=== PATIENT | male | born 1940 | race Caucasian/White ===

== ENCOUNTER 2020-08-11 17:39 | Inpatient (IN) | payer MEDICARE, OTHER ==
[~2020-08-11] VITALS: Ht 178 cm; Wt 86.4 kg
[2020-08-11] MEDS ORDERED: ONDANSETRON 4 MG (ZOFRAN) ORAL DISSOLVE TAB PO PRN (18:15)
[2020-08-11] MEDS ORDERED: ANTACID SUSP 30 ML UDC (MYLANTA) PO PRN (18:15)
[2020-08-11] MEDS ORDERED: MELATONIN 3 MG TABLET PO PRN (18:15)
[2020-08-11] MEDS ORDERED: polyethylene glycoL POWDER 17 GM (MIRALAX) PACK PO PRN (18:15)
[2020-08-11] MEDS ORDERED: CLOPIDOGREL 300 MG (PLAVIX) TABLET PO ONE ×2 (18:15→21:19)
[2020-08-11] MEDS ORDERED: ONDANSETRON 4 MG/2 ML (SDV) Z0FRAN IV PRN (18:15)
[2020-08-11] MEDS ORDERED: ACETAMINOPHEN 325 MG TABLET PO PRN (18:15)
[2020-08-11] MEDS ORDERED: BISACODYL 10 MG SUPP (DULCOLAX) PR PRN (18:15)
[2020-08-11] MEDS ORDERED: ENOXAPARIN 100 MG/1 ML (LOVENOX) SYR SC ONE (22:00)
[2020-08-11] MEDS: inSUlin ASPART (NovoLOG) 1 UNIT/0.01 ML (CHARGE PER UNIT) SC SCH (22:30)
[2020-08-12 03:10] LABS: BASOPHILS % (AUTO) 0 % (0-10); EOSINOPHILS % (AUTO) 0 % (0-10); HEMATOCRIT 25 % (40-54); HEMOGLOBIN 7.8 g/dL (13.3-17.7); LYMPHOCYTES % (AUTO) 14 % (12-44); MEAN CORPUSCULAR HEMOGLOBIN 27 pg (25-34); MEAN CORPUSCULAR HGB CONC 32 g/dL (32-36); MEAN CORPUSCULAR VOLUME 85 fL (80-99); MEAN PLATELET VOLUME 9.7 fL (9.0-12.2); MONOCYTES # (AUTO) 0.7 10^3/uL (0.0-1.0); MONOCYTES % (AUTO) 10 % (0-12); NEUTROPHILS # (AUTO) 5.4 10^3/uL (1.8-7.8); NEUTROPHILS % (AUTO) 76 % (42-75); PLATELET COUNT 226 10^3/uL (130-400); WHITE BLOOD COUNT 7.1 10^3/uL (4.3-11.0)
[2020-08-12 03:22] LABS: POTASSIUM 3.9 MMOL/L (3.6-5.0)
[2020-08-12 03:23] LABS: CALCIUM 8.5 MG/DL (8.5-10.1)
[2020-08-12 03:28] LABS: CREATININE SERUM 1.44 MG/DL (0.60-1.30)
[2020-08-12] MEDS: inSUlin ASPART (NovoLOG) 1 UNIT/0.01 ML (CHARGE PER UNIT) SC SCH ×4 (05:20→20:28)
[2020-08-12] MEDS: CLOPIDOGREL 75 MG (PLAVIX) TABLET PO SCH (09:48)
[2020-08-12] MEDS: ENOXAPARIN 100 MG/1 ML (LOVENOX) SYR SC SCH ×2 (09:48→20:12)
[2020-08-12] MEDS: ASPIRIN 81 MG CHEW (CHILDREN'S ASA) PO SCH (09:48)
--- NOTE | 2020-08-12 12:44 | Physical Therapy Evaluation ---
PT Evaluation-General Medical Diagnosis Admission Date August 11, 2020 at 20:26 Medical Diagnosis: pain in right leg Onset Date: August 12, 2020 Therapy Diagnosis Therapy Diagnosis: difficulty walking Precautions Precautions/Isolations: Fall Prevention, Standard Precautions Weight Bear Status Weight Bearing/Tolerated Weight Bearing/Tolerated Referral Physician: pankaj Reason for Referral: Evaluation/Treatment Social History Home: Single Level Current Living Status: Spouse Prior Prior Level of Function SCALE: Activities may be completed with or without assistive devices. 1-Rooooqpcet-cxvqhdq completes the activity by him/herself with no assistance from a helper. 5-Set-up or Clean-up Assistance-helper sets up or cleans up; patient completes activity. [place] assists only prior to or following the activity. 4-Supervision or Touching Assistance-helper provides verbal cues and/or touching/steadying and/or contact guard assistance as patient completes activity. Assistance may be provided throughout the activity or intermittently. 3-Partial/Moderate Assistance-helper does LESS THAN HALF the effort. [place] lifts, holds or supports trunk or limbs, but provides less than half the effort. 2-Substantial/Maximal Assistance-helper does MORE THAN HALF the effort. [place] lifts or holds trunk or limbs and provides more than half the effort. 6-Lhakhivcs-muudmy does ALL the effort. Patient does none of the effort to complete the activity. Or, the assistance of 2 or more helpers is required for the patient to complete the activity. If activity was not attempted, code reason: 7-Patient Refused. 9-Not Applicable-not attempted and the patient did not perform the activity before the current illness, exacerbation or injury. 10-Not Attempted due to Environmental Limitations-(lack of equipment, weather restraints, etc.). 88-Not Attempted due to Medical Conditions or Safety Concerns. Bed Mobility: 6 Transfers (B,C,W/C): 6 Gait: 6 Stairs: 6 Indoor Mobility (Ambulation): Independent Prior Devices Use: Walker PT Evaluation-Current Subjective The patient states that his right leg has been hurting her for a month. Nursing states that he has had a dopler that was negative. Awaiting further evaluation. Pain Numeric Pain Scale: 10-Worst Possible Pain Location: Right Location Body Site: Calf ROM/Strength ROM Lower Extremities WFL Strength Lower Extremities 4/5 Transfers Roll Left to Right (QC): 4 Sit to Lying (QC): 4 Lying to Sitting/Side of Bed(Q: 4 Sit to Stand (QC): 4 Gait Does the Patient Walk?: Yes Mode of Locomotion: Walk Anticipated Mode of Locomotion: Walk Walk 10 feet (QC): 5 Balance Sitting Static: Normal Sitting Dynamic: Good Standing Static: Fair Standing Dynamic: Fair Assessment/Needs 79 y.o. male with severe right leg pain who is awaiting further testing. He has limitations with gait secondary to severe pain. Rehab Potential: Good PT Short Term Goals Short Term Goals Time Frame: August 19, 2020 Roll Left & Right: 5 Sit to lyin Lying to sitting on side of be: 5 Sit to stand: 5 Chair/erf-ce-zieun transfer: 5 Toilet transfer: 5 Car transfer: 5 Walk 10 feet: 5 Walk 50 feet with two turns: 5 PT Weight And Balance Control Agent Goals Weight And Balance Control Agent Goals PT Weight And Balance Control Agent Goals Time Frame: August 26, 2020 Roll Left & Right (QC): 6 Sit to Lying (QC): 6 Lying-Sitting on Side/Bed(QC): 6 Sit to Stand (QC): 6 Chair/Tse-qa-Xgzsq Xfer(QC): 6 Toilet Transfer (QC): 6 Car Transfer (QC): 6 Does the Patient Walk: Yes Walk 10 feet (QC): 6 Walk 50ft with 2 Turns (QC): 6 Walk 150 ft (QC): 6 PT Plan Problem List Problem List: Activity Tolerance, Functional Strength, Safety, Balance, Gait, Transfer, Bed Mobility, ROM Treatment/Plan Treatment Plan: Continue Plan of Care Treatment Plan: Bed Mobility, Functional Activity Nichelle, Functional Strength, Gait, Therapeutic Exercise, Transfers Treatment Duration: August 26, 2020 Frequency: 11 times per week Estimated Hrs Per Day: .5 hour per day Time/GCodes Time In: 1215 Time Out: 1230 Total Billed Treatment Time: 15 Total Billed Treatment 1, EV Low complexity x 15' BRITTA BOOTH PT August 12, 2020 12:44
[2020-08-12] MEDS: D5 LR IV SOLUTION 1,000 ML IV SCH (13:31)
--- NOTE | 2020-08-12 14:22 | Diagnostic Imaging Report ---
PROCEDURE: CT neck soft tissue without contrast. TECHNIQUE: Multiple contiguous axial images were obtained through the neck without the use of intravenous contrast. Auto Exposure Controls were utilized during the CT exam to meet ALARA standards for radiation dose reduction. INDICATION: Lymphadenopathy Noncontrasted soft tissue neck CT is performed. Sensitivity for detecting adenopathy or masses is severely limited by the absence of contrast as well as confounded by likely subcutaneous edema and a paucity of fat. The prevertebral and retropharyngeal spaces were grossly unremarkable. There are dense vascular calcifications of the carotids, greater left. No acute or suspicious bony abnormality is found. The visualized paranasal sinuses nonacute. No mass, fluid collection or appreciable lymphadenopathy. There are biapical pleural effusions as well as some apical septal thickening, likely mild edema. There are degenerative changes throughout the spine. IMPRESSION: 1. No identifiable mass or fluid collection however substantially limited sensitivity for factors discussed. No appreciable mass or fluid collection. 2. There is biapical pleural fluid and likely some biapical interstitial edema and diffuse subcutaneous edema with a cachectic type body habitus and minimal fat. Dictated by: Dictated on workstation # [id number]
--- NOTE | 2020-08-12 15:15 | Diagnostic Imaging Report ---
PROCEDURE: CT right lower extremity without contrast. TECHNIQUE: Axially acquired CT was obtained through the right lower extremity without intravenous contrast. Coronal and sagittal reformations were also performed. Auto Exposure Controls were utilized during the CT exam to meet ALARA standards for radiation dose reduction. INDICATION: Right leg swelling from the groin to the knee. FINDINGS: The femur appears intact. No fracture or bony destructive changes are identified. There is edema throughout the subcutaneous soft tissues of the right lower extremity. No soft tissue gas is identified. There is abnormal appearance to the vastus intermedius musculature of the deep thigh. There are patchy areas of low attenuation throughout the musculature. Small fluid collections cannot be entirely excluded within the muscle. Deep tissue infection is suspected. No other fluid collection is identified. IMPRESSION: Significant subjacent edema throughout the right lower extremity consistent with cellulitis. Vastus intermedius musculature of the thigh is abnormal in appearance and demonstrates heterogeneous density with areas of fluid density distally and the possibility of a multifocal fluid collections or abscesses within the muscle cannot be entirely excluded. No soft tissue gas is identified to suggest necrotizing fasciitis. No bony destructive changes or evidence of osteomyelitis is identified. MRI would be useful for better characterization. Dictated by: Dictated on workstation # [id number]
--- NOTE | 2020-08-12 15:38 | Consultation-Cardiology ---
HPI-Cardiology Cardiology Consultation: Date of Consultation 08/12/20 Date of Admission Attending Physician Pushpa Bass MD Admitting Physician Stan Mohan MD Consulting Physician Hay CARRENO MD HPI: Time Seen by a Provider: 14:30 Chief Complaint: right leg pain This is a elderly male with CAD/CABG, Diabetes, CKD, anemia who presented to an outside ER with right leg pain and swelling. Follows with Sandhya Baez but was transferred to [place] because Sandhya Baez in on diversion. Borderline troponin. Anemia. Denies any chest pain or shortness of breath. Review of Systems-Cardiology Review of Systems Constitutional: As described under HPI; No As described under HPI, No no symptoms reported, No chills, No fever, No lightheadedness Eyes: No As described under HPI, No no symptoms reported, No blindness, No blurred vision, No contact lenses, No drainage, No decreased acuity, No foreign body sensation, No pain, No vision change Ears/Nose/Throat: No As described under HPI, No no symptoms reported, No chronic hearing loss, No ear discharge, No ear pain, No nasal drainage, No ulcerations Respiratory: No no symptoms reported; As described under HPI; No As described under HPI, No cough, No orthopnea, No shortness of breath, No SOB with excertion Cardiovascular: No no symptoms reported; As described under HPI; No As described under HPI, No chest pain, No edema, No irregular heart rate, No lightheadedness, No palpitations Gastrointestinal: No no symptoms reported, No As described under HPI, No abdomen distended, No abdominal pain, No blood streaked bowels, No constipation, No diarrhea, No nausea, No vomiting, No stool coloration changes Genitourinary: No As described under HPI, No burning, No dysuria, No discharge, No frequency, No flank pain, No hematuria, No urgency Musculoskeletal: As describe under HPI Skin: No rash, No skin related problems, No ulcerations Psychiatric/Neurological: No anxiety, No depression, No seizure, No focal weakness, No syncope Hematologic: No bleeding abnormalities FJR-[id number]-Qduplp Hx Patient Social History Have you traveled recently?: No Alcohol Use?: Yes Pt feels they are or have been: No Past Medical History PMH As described under Assessment. Allergies and Home Medications Allergies Coded Allergies: rosuvastatin (Verified Allergy, Unknown, 08/12/20) Patient Home Medication List Home Medication List Reviewed: Yes Physical Exam-Cardiology Physical Exam Vital Signs/I&O 08/13/20 08/13/20 08/13/20 08/13/20 10:20 12:00 12:35 16:00 Temp 36.7 Pulse 111 109 94 Resp 16 B/P (MAP) 106/60 (75) 111/60 (77) Pulse Ox 96 93 97 O2 Delivery Nasal Cannula Nasal Cannula Nasal Cannula O2 Flow Rate 3.00 3.00 3.00 08/13/20 08/13/20 08/13/20 19:00 20:21 20:38 Temp 37.2 Pulse 79 92 Resp 20 B/P (MAP) 105/56 (72) Pulse Ox 94 97 O2 Delivery Nasal Cannula Nasal Cannula O2 Flow Rate 3.00 3.00 08/13/20 00:00 Intake Total 660 ml Output Total 925 ml Balance -265 ml Capillary Refill : Less Than 3 Seconds Constitutional: appears stated age, AAO x 3; No apparent distress HEENT: PERRL; No discharge; hearing is well preserved, oral hygience is good; No ulceration, No xanthelasmas are seen Neck: No carotid bruit; carotid pulses are 2 + bilaterally Respiratory: chest is bilaterally symmetric, lungs clear to auscultation Cardiovascular: regular rate-rhythm, tachycardia, S1 and S2 Gastrointestinal: soft, audible bowel sounds; No spleenomegaly Rectal: deferred Extremities: No clubbing, No cyanosis; significant edema Neurologic/Psychiatric: no motor/sensory deficits, alert, normal mood/affect, oriented x 3, power is 5/5 both on sides Skin: No rash, No ulcerations Data Review Labs Laboratory Tests 08/13/20 02:30: White Blood Count 6.0, Red Blood Count 3.25L, Hemoglobin 8.7L, Hematocrit 28L, Mean Corpuscular Volume 86, Mean Corpuscular Hemoglobin 27, Mean Corpuscular Hemoglobin Concent 31L, Red Cell Distribution Width 16.0H, Platelet Count 249, Mean Platelet Volume 9.4, Immature Granulocyte % (Auto) 0, Neutrophils (%) (Auto) 79H, Lymphocytes (%) (Auto) 13, Monocytes (%) (Auto) 8, Eosinophils (%) (Auto) 0, Basophils (%) (Auto) 0, Neutrophils # (Auto) 4.7, Lymphocytes # (Auto) 0.8L, Monocytes # (Auto) 0.5, Eosinophils # (Auto) 0.0, Basophils # (Auto) 0.0, Immature Granulocyte # (Auto) 0.0, Sodium Level 142, Potassium Level 4.1, Chloride Level 106, Carbon Dioxide Level 27, Anion Gap 9, Blood Urea Nitrogen 57H, Creatinine 1.24, Estimat Glomerular Filtration Rate 56, BUN/Creatinine Ratio 46, Glucose Level 104, Calcium Level 8.6, Total Bilirubin 0.5, Direct Bilirubin 0.2, Indirect Bilirubin 0.3, Aspartate Amino Transf (AST/SGOT) 59H, Alanine Aminotransferase (ALT/SGPT) 50, Alkaline Phosphatase 56, Total Protein 5.1L, Albumin 2.0L 08/13/20 20:22: Glucometer 137H ECG Impression ECG Initial ECG Rhythm: S.Tach Initial ECG Impression: Nonspecific Changes A/P-Cardiology Assessment/Admission Diagnosis Right leg pain and swelling, CAD, CABG, Anemia, CKD Plan Right leg pain and swelling, - right lower extremity doppler shows no DVT. Ddimer mildly elevated. Swelling noted, however, not pale, pulses ok. No evidence of acute ischemic limb. CAD, CABG, no chest pain. Borderline positive troponin, trending down. No acute EKG changes. severe anemia - cath contraindicated till bleeding ruled out. Nuclear stress test may be a better modality to assess for any significant anemia. Anemia, unclear etiology. apparently patient is not aware of anemia. likely new diagnosis. defer to general surgery and primary team for evaluation. CKD Thank you for your consultation. Please call me if you have any questions. Leo Carreno MD, FACP, FACC, FSCAI, FHRS, CCDS Interventional Cardiology Cardiac Electrophysiology Vascular Medicine and Endovascular Interventions Hay CARRENO MD August 12, 2020 15:38
--- NOTE | 2020-08-12 18:33 | History & Physical-Hospitalist ---
History of Present Illness HPI/Chief Complaint Atilio Romo is an 79 year old male with PMH CAD s/p CABG, HTN, HLD, T2DM, hypothyroidism, CKD, who presented to [facility] with right leg swelling. His workup revealed an elevated troponin and he was transferred for NSTEMI. He denies any chest pain. He reports shortness of breath. He has been feeling weak. He says that the swelling with his leg has been slowly progressing. He had an ultrasound in the ER that showed no blood clot. He is not sure if they took veins from his leg when he had his bypass last September. Source: patient Exam Limitations: no limitations Date Seen 08/12/20 Time Seen by a Provider: 09:40 Attending Physician Anders Pierce MD PCP Stan Mohan MD Referring Physician Date of Admission August 11, 2020 at 20:26 Home Medications & Allergies Home Medications Reviewed patient Home Medication Reconciliation performed by pharmacy medication reconciliations pilot plant research technician and/or nursing. Patients Allergies have been reviewed. Allergies Allergies Coded Allergies rosuvastatin (Verified Allergy, Unknown, 08/12/20) Patient Social History Tobacco Use?: Yes Smokeless type used: Chew Smokeless Tobacco Frequency: Current Everyday User Use of E-Cig and/or Vaping dev: No Substance use?: No Alcohol Use?: Yes Alcohol type: Beer Alcohol Frequency: Once in a while Pt stated abuse/neglect: No Current Status Do you have an Advance Directi: Yes Advance Directive Location: CT Communicates: Verbally Primary Language: Syrian Preferred Spoken Language: Syrian Is interpretation needed?: No Past Medical History HTN T2DM HLD CAD Hypothyroid CKD Family Medical History Family Hx: Noncontributory Review of Systems Constitutional: no symptoms reported EENTM: no symptoms reported Respiratory: short of breath Cardiovascular: no symptoms reported Gastrointestinal: no symptoms reported Genitourinary: no symptoms reported Musculoskeletal: no symptoms reported Skin: no symptoms reported Psychiatric/Neurological: No Symptoms Reported Physical Exam Physical Exam Vital Signs Vital Signs - First Documented 08/11/20 08/11/20 20:31 23:12 Temp 36.6 Pulse 79 Resp 18 B/P (MAP) 118/77 (91) Pulse Ox 95 O2 Delivery Room Air O2 Flow Rate 2.00 Capillary Refill : Less Than 3 Seconds Height, Weight, BMI Height: '" Weight: lbs. oz. kg; 27.36 BMI Method: General Appearance: No Apparent Distress, Chronically ill HEENT: PERRL/EOMI, Pharynx Normal Neck: Supple, Lymphadenopathy (L), Lymphadenopathy (R) Respiratory: Lungs Clear, Normal Breath Sounds, No Respiratory Distress Cardiovascular: Regular Rate, Rhythm, No Murmur Gastrointestinal: Normal Bowel Sounds, Non Tender, Soft Extremity: No Inflammation; Swelling (right > left) Skin: Normal Color, Warm/Dry Results Results/Procedures Labs Laboratory Tests 08/12/20 02:59 Patient resulted labs reviewed. Imaging: Reviewed Imaging Report Assessment/Plan Admission Diagnosis NSTEMI Admission Status: Inpatient Order (span 2 midnights) Reason for Inpatient Admission: NSTEMI requiring further evaluation Assessment and Plan NSTEMI CAD s/p CABG Troponin elevated Cardiology consulted, appreciate assistance Started on ASA and Plavix Therapeutic Lovenox Echo with normal EF, grade 2 diastolic dysfunction, basal inferoseptal akinesis Right leg swelling Ultrasound negative for DVT at [facility] CT with vastus intermedius abscess vs multifocal fluid collection Consult general surgery, appreciate assistance Submandibular lymphadenopathy Unclear significance CT Neck unremarkable T2DM with hypoglycemia Hold home meds D5LR Sliding scale insulin CKD Cr 1.44, unclear baseline IV fluids Continue to monitor HTN HLD Hypothyroid Continue home meds Diagnosis/Problems Diagnosis/Problems (1) NSTEMI (non-ST elevation myocardial infarction) Status: Acute (2) CAD (coronary artery disease) Status: Chronic (3) S/P CABG (coronary artery bypass graft) Status: Chronic (4) Right leg swelling Status: Acute (5) Submandibular lymphadenopathy Status: Acute (6) HTN (hypertension) Status: Chronic (7) HLD (hyperlipidemia) Status: Chronic (8) T2DM (type 2 diabetes mellitus) Status: Acute Qualifiers: Diabetes mellitus fpc insulin use: without fpc use Diabetes m ellitus complication status: with hypoglycemia Diabetes mellitus complication detail: without coma Qualified Codes: E11.649 - Type 2 diabetes mellitus with hypoglycemia without coma (9) Hypothyroidism Status: Chronic (10) CKD (chronic kidney disease) Status: Chronic Qualifiers: Chronic kidney disease stage: stage 3 (moderate) Chronic kidney disease stage 3 subtype: stage 3a (GFR 45-59) Qualified Codes: N18.31 - Chronic kidney disease, stage 3a ANDERS PIERCE MD August 12, 2020 18:33
[2020-08-13] MEDS: D5 LR IV SOLUTION 1,000 ML IV SCH (01:52)
[2020-08-13 02:51] LABS: BASOPHILS % (AUTO) 0 % (0-10); EOSINOPHILS % (AUTO) 0 % (0-10); HEMATOCRIT 28 % (40-54); HEMOGLOBIN 8.7 g/dL (13.3-17.7); LYMPHOCYTES # (AUTO) 0.8 10^3/uL (1.0-4.0); LYMPHOCYTES % (AUTO) 13 % (12-44); MEAN CORPUSCULAR HEMOGLOBIN 27 pg (25-34); MEAN CORPUSCULAR HGB CONC 31 g/dL (32-36); MEAN CORPUSCULAR VOLUME 86 fL (80-99); MEAN PLATELET VOLUME 9.4 fL (9.0-12.2); MONOCYTES # (AUTO) 0.5 10^3/uL (0.0-1.0); MONOCYTES % (AUTO) 8 % (0-12); NEUTROPHILS # (AUTO) 4.7 10^3/uL (1.8-7.8); NEUTROPHILS % (AUTO) 79 % (42-75); PLATELET COUNT 249 10^3/uL (130-400)
[2020-08-13 03:05] LABS: POTASSIUM 4.1 MMOL/L (3.6-5.0)
[2020-08-13 03:06] LABS: CALCIUM 8.6 MG/DL (8.5-10.1)
[2020-08-13 03:10] LABS: CREATININE SERUM 1.24 MG/DL (0.60-1.30)
[2020-08-13] MEDS: inSUlin ASPART (NovoLOG) 1 UNIT/0.01 ML (CHARGE PER UNIT) SC SCH (04:09)
[2020-08-13] MEDS: ASPIRIN 81 MG CHEW (CHILDREN'S ASA) PO SCH (08:51)
[2020-08-13] MEDS: CLOPIDOGREL 75 MG (PLAVIX) TABLET PO SCH (08:51)
[2020-08-13] MEDS: ENOXAPARIN 100 MG/1 ML (LOVENOX) SYR SC SCH (08:52)
--- NOTE | 2020-08-13 10:49 | Progress Note - Hospitalist ---
Subjective HPI/CC On Admission Date Seen by Provider: August 13, 2020 Time Seen by Provider: 09:10 Atilio Romo is an 79 year old male with PMH CAD s/p CABG, HTN, HLD, T2DM, hypothyroidism, CKD, who presented to [facility] with right leg swelling. His workup revealed an elevated troponin and he was transferred for NSTEMI. He denies any chest pain. He reports shortness of breath. He has been feeling weak. He says that the swelling with his leg has been slowly progressing. He had an ultrasound in the ER that showed no blood clot. He is not sure if they took veins from his leg when he had his bypass last September. Subjective/Events-last exam He denies any chest pain. He still has a little bit of pain in his right leg. He was feeling more short of breath this morning. He denies any fevers. He denies any abdominal pain. He has no other complaints or concerns. Objective Exam Vital Signs Vital Signs Date Time Temp Pulse Resp B/P (MAP) Pulse Ox O2 Delivery O2 Flow Rate FiO2 08/13/20 10:20 96 Nasal Cannula 3.00 08/13/20 08:00 116 20 110/67 (81) 08/13/20 03:20 36.5 Capillary Refill : Less Than 3 Seconds General Appearance: No Apparent Distress, Chronically ill Respiratory: Lungs Clear, Normal Breath Sounds, No Respiratory Distress Cardiovascular: Regular Rate, Rhythm, No Murmur Gastrointestinal: Normal Bowel Sounds, Non Tender, Soft Extremity: Swelling (3+ pitting edema bilateally, right > left swelling) Neurologic/Psychiatric: Alert, Oriented x3, No Motor/Sensory Deficits, Normal Mood/Affect Skin: Normal Color, Warm/Dry Results/Procedures Lab Laboratory Tests 08/13/20 02:30 Patient resulted labs reviewed. Imaging: Reviewed Imaging Report Assessment/Plan Assessment and Plan Assess & Plan/Chief Complaint Elevated troponin CAD s/p CABG Troponin mildly elevated Cardiology consulted, appreciate assistance Continue ASA and Plavix Echo with normal EF, grade 2 diastolic dysfunction, basal inferoseptal akinesis Planning for conservative management, does not appear to be acute DE Acute respiratory failure with hypoxia Right leg swelling Ultrasound negative for DVT at [facility] Requiring supplemental oxygen Perform CT to rule out PE CT leg with vastus intermedius abscess vs multifocal fluid collection Consult general surgery, appreciate assistance Anemia Hgb 7.8 on arrival, improved to 8.7 today Occult blood ordered Iron studies pending General surgery consulted, appreciate assistance T2DM with hypoglycemia Hold home meds Normoglycemic Stop sliding scale insulin CKD Cr 1.24, unclear baseline IV fluids Continue to monitor HTN HLD Hypothyroid Continue home meds Submandibular lymphadenopathy Unclear significance CT Neck unremarkable Diagnosis/Problems Diagnosis/Problems (1) NSTEMI (non-ST elevation myocardial infarction) Status: Acute (2) CAD (coronary artery disease) Status: Chronic (3) S/P CABG (coronary artery bypass graft) Status: Chronic (4) Right leg swelling Status: Acute (5) Submandibular lymphadenopathy Status: Acute (6) HTN (hypertension) Status: Chronic (7) HLD (hyperlipidemia) Status: Chronic (8) T2DM (type 2 diabetes mellitus) Status: Acute Qualifiers: Diabetes mellitus half-way insulin use: without termite helper use Diabetes mellitus complication status: with hypoglycemia Diabetes mellitus complication detail: without coma Qualified Codes: E11.649 - Type 2 diabetes mellitus with hypoglycemia without coma (9) Hypothyroidism Status: Chronic (10) CKD (chronic kidney disease) Status: Chronic Qualifiers: Chronic kidney disease stage: stage 3 (moderate) Chronic kidney disease stage 3 subtype: stage 3a (GFR 45-59) Qualified Codes: N18.31 - Chronic kidney disease, stage 3a ANDERS PIERCE MD August 13, 2020 10:49
[2020-08-13] MEDS ORDERED: NS 100 ML (IVPB) BAG IV ONE (11:00)
[2020-08-13] MEDS ORDERED: IOHEXOL 350 MG/ML 100 ML (OMNIPAQUE 350) VIAL IV ONE (11:00)
[2020-08-13] MEDS ORDERED: HOLD METFORMIN - RECEIVED CONTRAST 20 ML VIAL IV SCH (11:00)
[2020-08-13 11:11] LABS: TOTAL PROTEIN 5.1 GM/DL (6.4-8.2)
[2020-08-13 11:13] LABS: BILIRUBIN,TOTAL 0.5 MG/DL (0.1-1.0)
[2020-08-13 11:17] LABS: BILIRUBIN,DIRECT 0.2 MG/DL (0.0-0.3); BILIRUBIN,INDIRECT 0.3 MG/DL
--- NOTE | 2020-08-13 13:52 | Diagnostic Imaging Report ---
PROCEDURE: CT angiography of the chest with contrast. TECHNIQUE: Multiple contiguous axial images were obtained through the chest after uneventful bolus administration of intravenous contrast. 3D reconstructed CTA MIP acquisitions were also performed. Auto Exposure Controls were utilized during the CT exam to meet ALARA standards for radiation dose reduction. INDICATION: Hypoxia. History of prostate cancer. Evaluate for PE. COMPARISON: None. FINDINGS: This helical CT pulmonary angiogram is diagnostic to the subsegmental level branches of the pulmonary artery and demonstrates no pulmonary emboli. The heart and great vessels are unremarkable. There is no pericardial effusion. There is calcified aortic and coronary atherosclerotic plaque without aneurysm. There is no axillary, mediastinal, or hilar adenopathy. Bilateral moderate pleural effusions are seen with bibasilar atelectasis. No pulmonary mass is present. No central endobronchial obstructing lesions. No evidence of pneumothorax. Osseous structures appear normal. Limited views of the upper abdomen are unremarkable. IMPRESSION: 1. No acute pulmonary embolus. 2. Moderate bilateral pleural effusions with bibasilar consolidative opacities likely representing atelectasis. Dictated by: Dictated on workstation # [id number]
--- NOTE | 2020-08-13 15:48 | Consultation - Surgery ---
History of Present Illness History of Present Illness Patient Consulted On(rafael/time) 08/13/20 15:43 Time Seen by Provider: 15:08 History of Present Illness Surgery asked to consult regarding edema of RLE r/o abscess. HPI per IM: Atilio Romo is an 79 year old male with PMH CAD s/p CABG, HTN, HLD, T2DM, hypothyroidism, CKD, who presented to [facility] with right leg swelling. His workup revealed an elevated troponin and he was transferred for NSTEMI. He denies any chest pain. He reports shortness of breath. He has been feeling weak. He says that the swelling with his leg has been slowly progressing. He had an ultrasound in the ER that showed no blood clot. He is not sure if they took veins from his leg when he had his bypass last September. When I spoke to pt he states that his breathing is about the same, he is lying in bed in no distress. I asked about Hiatal Hernia and he stated he was told he had a large one, but that when they started work-up to fix it he wound up "having triple bypass". He presented to the ER this time specifically because of his leg. He thinks the leg is slightly better, definitely not worse than when he went in to [place] [facility]. Allergies and Home Medications Allergies Coded Allergies: rosuvastatin (Verified Allergy, Unknown, 08/12/20) Patient Home Medication List Home Medication List Reviewed: Yes Past Ezitnzr-Vdtlne-Cyukpa Hx Patient Social History Smoking Status: Never a Smoker Type Used: Smokeless Tobacco (chews daily) Alcohol Use?: Yes Have you traveled recently?: No Surgeries History of Surgeries: Yes Surgeries: CABG Respiratory History of Respiratory Disorde: Yes Respiratory Disorders: COPD Cardiovascular History of Cardiac Disorders: Yes Cardiac Disorders: Coronary Artery Disease, Hypertension Neurological History of Neurological Disord: No Genitourinary History of Genitourinary Disor: Yes Genitourinary Disorders: Benign Prostatic Hyperpl, Renal Failure Gastrointestinal History of Gastrointestinal Di: Yes (hiatal hernia) Gastrointestinal Disorders: Diverticulosis Musculoskeletal Musculoskeletal Disorders: Arthritis, Chronic Back Pain Endocrine History of Endocrine Disorders: Yes Endocrine Disorders: Diabetes, Non-Insulin dep HEENT History of HEENT Disorders: Yes HEENT Disorders: Cataract Hearing Impairment: Hard of Hearing Cancer History of Cancer: No Psychosocial History of Psychiatric Problem: No Integumentary History of Skin or Integumenta: No Family Medical History Significant Family History: Diabetes Review of Systems-General Constitutional: malaise, weakness EENTM: hearing loss; No mouth pain, No mouth swelling, No epistaxis Respiratory: cough, dyspnea on exertion; No hemoptysis; short of breath Cardiovascular: chest pain, Hx of Intervention, vascular heart diseas Gastrointestinal: No abdominal pain, No nausea, No vomiting Genitourinary: No dysuria; frequency; No hematuria; hesitancy Musculoskeletal: joint pain, joint swelling, muscle stiffness Skin: No change in color, No change in hair/nails Psychiatric/Neurological: Denies Anxiety, Denies Depressed, Denies Seizure, Denies Tremors Other pt denies any hx of abnormal bleeding or bruising Physical Exam-General Problems Physical Exam Vital Signs Vital Signs - First Documented 08/11/20 08/11/20 20:31 23:12 Temp 36.6 Pulse 79 Resp 18 B/P (MAP) 118/77 (91) Pulse Ox 95 O2 Delivery Room Air O2 Flow Rate 2.00 Capillary Refill : Less Than 3 Seconds General Appearance: WD/WN, no apparent distress Eyes: Bilateral Eye PERRL, Bilateral Eye EOMI HEENT: pharynx normal; No scleral icterus (R), No scleral icterus (L) Neck: non-tender, supple Respiratory: no respiratory distress, no accessory muscle use, decreased breath sounds, crackles, rales, other (dullness to percussion at bases) Cardiovascular: regular rate, rhythm, no murmur Gastrointestinal: non tender, soft, no organomegaly Genital/Rectal: other (pt has normal circumcised genitalia, but has bruising all over penis and scrotum) Back: no CVA tenderness, no vertebral tenderness Extremities: no calf tenderness, normal capillary refill, pedal edema (right greater than left, +2-3 pitting edema, no erythema seen in right leg) Neurologic/Psychiatric: home health cna II-XII nml as tested, alert, normal mood/affect, oriented x 3 Skin: normal color, warm/dry Lymphatic: no adenopathy (axilla or groin) Data Review Labs Laboratory Tests 08/12/20 16:29: Glucometer 55*L 08/12/20 17:26: Glucometer 76 08/12/20 20:17: Glucometer 116H 08/13/20 02:30: White Blood Count 6.0, Red Blood Count 3.25L, Hemoglobin 8.7L, Hematocrit 28L, Mean Corpuscular Volume 86, Mean Corpuscular Hemoglobin 27, Mean Corpuscular Hemoglobin Concent 31L, Red Cell Distribution Width 16.0H, Platelet Count 249, Mean Platelet Volume 9.4, Immature Granulocyte % (Auto) 0, Neutrophils (%) (Auto) 79H, Lymphocytes (%) (Auto) 13, Monocytes (%) (Auto) 8, Eosinophils (%) (Auto) 0, Basophils (%) (Auto) 0, Neutrophils # (Auto) 4.7, Lymphocytes # (Auto) 0.8L, Monocytes # (Auto) 0.5, Eosinophils # (Auto) 0.0, Basophils # (Auto) 0.0, Immature Granulocyte # (Auto) 0.0, Sodium Level 142, Potassium Level 4.1, Chloride Level 106, Carbon Dioxide Level 27, Anion Gap 9, Blood Urea Nitrogen 57H, Creatinine 1.24, Estimat Glomerular Filtration Rate 56, BUN/Creatinine Ratio 46, Glucose Level 104, Calcium Level 8.6, Total Bilirubin 0.5, Direct Bilirubin 0.2, Indirect Bilirubin 0.3, Aspartate Amino Transf (AST/SGOT) 59H, Alanine Aminotransferase (ALT/SGPT) 50, Alkaline Phosphatase 56, Total Protein 5.1L, Albumin 2.0L Radiology Date of Exam:08/12/20 CT EXTREMITY LOWER RIGHT WO PROCEDURE: CT right lower extremity without contrast. TECHNIQUE: Axially acquired CT was obtained through the right lower extremity without intravenous contrast. Coronal and sagittal reformations were also performed. Auto Exposure Controls were utilized during the CT exam to meet ALARA standards for radiation dose reduction. INDICATION: Right leg swelling from the groin to the knee. FINDINGS: The femur appears intact. No fracture or bony destructive changes are identified. There is edema throughout the subcutaneous soft tissues of the right lower extremity. No soft tissue gas is identified. There is abnormal appearance to the vastus intermedius musculature of the deep thigh. There are patchy areas of low attenuation throughout the musculature. Small fluid collections cannot be entirely excluded within the muscle. Deep tissue infection is suspected. No other fluid collection is identified. IMPRESSION: Significant subjacent edema throughout the right lower extremity consistent with cellulitis. Vastus intermedius musculature of the thigh is abnormal in appearance and demonstrates heterogeneous density with areas of fluid density distally and the possibility of a multifocal fluid collections or abscesses within the muscle cannot be entirely excluded. No soft tissue gas is identified to suggest necrotizing fasciitis. No bony destructive changes or evidence of osteomyelitis is identified. MRI would be useful for better characterization. Dictated by: Dictated on workstation # [id number] Dict: 08/12/20 1408 Trans: 08/12/20 1625 [facility] [id number] Interpreted by: LULA HERRERA MD Electronically signed by: LULA HERRERA MD 08/12/20 3818 Assessment/Plan Assessment/Plan Assessment/Plan Right Leg Edema - doubt cellulitis or abscess. CT reading says cannot be ruled out; but has no erythema and normal WBC. No surgery indicated at this time Hiatal Hernia - large, with colon and stomach up in left chest. Bilateral Pleural effusions NSTEMI Pt looks ok to go down to fourth floor from surgical standpoint, does not appear that he is going to need surgical intervention. He should get the Hiatal hernia fixed at some point, probably sooner rather than later; but it is large, so the risk of incarceration may be lower. MARY NESBITT DO August 13, 2020 15:48
[2020-08-13] MEDS ORDERED: ENOXAPARIN 40 MG/0.4 ML (LOVENOX) SYR SC SCH (19:45)
[2020-08-13] MEDS: ENOXAPARIN 40 MG/0.4 ML (LOVENOX) SYR SC SCH (20:37)
--- NOTE | 2020-08-13 22:07 | Cardiology Progress Note ---
Cardiology SOAP Progress Note Subjective: No chest pain or shortness of breath Objective: I&O/Vital Signs 08/13/20 08/13/20 08/13/20 08/13/20 10:20 12:00 12:35 16:00 Temp 36.7 Pulse 111 109 94 Resp 16 B/P (MAP) 106/60 (75) 111/60 (77) Pulse Ox 96 93 97 O2 Delivery Nasal Cannula Nasal Cannula Nasal Cannula O2 Flow Rate 3.00 3.00 3.00 08/13/20 08/13/20 08/13/20 19:00 20:21 20:38 Temp 37.2 Pulse 79 92 Resp 20 B/P (MAP) 105/56 (72) Pulse Ox 94 97 O2 Delivery Nasal Cannula Nasal Cannula O2 Flow Rate 3.00 3.00 08/13/20 00:00 Intake Total 660 ml Output Total 925 ml Balance -265 ml Constitutional: appears stated age, AAO x 3; No apparent distress Respiratory: chest is bilaterally symmetric, lungs clear to auscultation Cardiovascular: regular rate-rhythm, tachycardia, S1 and S2 Gastrointestional: soft, audible bowel sounds; No spleenomegaly Genital/Rectal: other (pt has normal circumcised genitalia, but has bruising all over penis and scrotum) Extremities: No clubbing, No cyanosis; significant edema Neurologic/Psychiatric: no motor/sensory deficits, alert, normal mood/affect, oriented x 3, power is 5/5 both on sides Skin: No rash, No ulcerations Results/Procedures: Labs Laboratory Tests 08/13/20 02:30: White Blood Count 6.0, Red Blood Count 3.25L, Hemoglobin 8.7L, Hematocrit 28L, Mean Corpuscular Volume 86, Mean Corpuscular Hemoglobin 27, Mean Corpuscular Hemoglobin Concent 31L, Red Cell Distribution Width 16.0H, Platelet Count 249, Mean Platelet Volume 9.4, Immature Granulocyte % (Auto) 0, Neutrophils (%) (Auto) 79H, Lymphocytes (%) (Auto) 13, Monocytes (%) (Auto) 8, Eosinophils (%) (Auto) 0, Basophils (%) (Auto) 0, Neutrophils # (Auto) 4.7, Lymphocytes # (Auto) 0.8L, Monocytes # (Auto) 0.5, Eosinophils # (Auto) 0.0, Basophils # (Auto) 0.0, Immature Granulocyte # (Auto) 0.0, Sodium Level 142, Potassium Level 4.1, Chloride Level 106, Carbon Dioxide Level 27, Anion Gap 9, Blood Urea Nitrogen 5 7H, Creatinine 1.24, Estimat Glomerular Filtration Rate 56, BUN/Creatinine Ratio 46, Glucose Level 104, Calcium Level 8.6, Total Bilirubin 0.5, Direct Bilirubin 0.2, Indirect Bilirubin 0.3, Aspartate Amino Transf (AST/SGOT) 59H, Alanine Aminotransferase (ALT/SGPT) 50, Alkaline Phosphatase 56, Total Protein 5.1L, Albumin 2.0L 08/13/20 20:22: Glucometer 137H A/P: Assessment/Dx: Right leg pain and swelling, CAD, CABG, Anemia, CKD Plan: Right leg pain and swelling, - right lower extremity doppler shows no DVT. D dimer mildly elevated. Swelling noted, however, not pale, pulses ok. No evidence of acute ischemic limb. CAD, CABG, no chest pain. Borderline positive troponin, trending down. No acute EKG changes. severe anemia - cath contraindicated till bleeding ruled out. Nuclear stress test may be a better modality to assess for any significant anemia. Consider Nuclear stress test on friday. Anemia, unclear etiology. apparently patient is not aware of anemia. likely new diagnosis. defer to general surgery and primary team for evaluation. CKD Thank you for your consultation. Please call me if you have any questions. Leo Carreno MD, FACP, FACC, FSCAI, FHRS, CCDS Interventional Cardiology Cardiac Electrophysiology Vascular Medicine and Endovascular Interventions Hay CARRENO MD August 13, 2020 22:07
[2020-08-14 05:33] LABS: BASOPHILS % (AUTO) 0 % (0-10); EOSINOPHILS % (AUTO) 0 % (0-10); HEMATOCRIT 27 % (40-54); HEMOGLOBIN 8.4 g/dL (13.3-17.7); LYMPHOCYTES # (AUTO) 0.9 10^3/uL (1.0-4.0); LYMPHOCYTES % (AUTO) 13 % (12-44); MEAN CORPUSCULAR HEMOGLOBIN 27 pg (25-34); MEAN CORPUSCULAR HGB CONC 31 g/dL (32-36); MEAN CORPUSCULAR VOLUME 86 fL (80-99); MEAN PLATELET VOLUME 9.8 fL (9.0-12.2); MONOCYTES # (AUTO) 0.6 10^3/uL (0.0-1.0); MONOCYTES % (AUTO) 8 % (0-12); NEUTROPHILS # (AUTO) 5.4 10^3/uL (1.8-7.8); NEUTROPHILS % (AUTO) 78 % (42-75); PLATELET COUNT 272 10^3/uL (130-400); WHITE BLOOD COUNT 6.9 10^3/uL (4.3-11.0)
[2020-08-14 05:45] LABS: CHLORIDE 105 MMOL/L (98-107); POTASSIUM 3.9 MMOL/L (3.6-5.0); SODIUM 140 MMOL/L (135-145)
[2020-08-14 05:47] LABS: CALCIUM 8.7 MG/DL (8.5-10.1); GLUCOSE 103 MG/DL (70-105)
[2020-08-14 05:48] LABS: CARBON DIOXIDE 27 MMOL/L (21-32)
[2020-08-14 05:51] LABS: CREATININE SERUM 1.12 MG/DL (0.60-1.30); GFR ESTIMATED > 60
[2020-08-14 05:52] LABS: BUN/CREATININE RATIO 47
[2020-08-14] MEDS: ASPIRIN 81 MG CHEW (CHILDREN'S ASA) PO SCH (08:42)
[2020-08-14] MEDS: CLOPIDOGREL 75 MG (PLAVIX) TABLET PO SCH (08:42)
--- NOTE | 2020-08-14 10:32 | Progress Note - Cardiology ---
Cardiology SOAP Progress Note Subjective: Sitting up in bed C/O right leg pain, improved from admit Reports chronic SOB which is unchanged No c/o CP or palpitations Reports chronic leg swelling Primary Photographic Intelligence Officer: Dr. Boykin at [facility] in [place], [place] Objective: I&O/Vital Signs 08/14/20 08/15/20 08/15/20 08/15/20 23:42 01:00 03:07 07:00 Temp 36.8 36.5 Pulse 92 98 85 96 Resp 20 20 B/P (MAP) 104/53 (70) 109/65 (80) Pulse Ox 94 94 O2 Delivery Nasal Cannula Nasal Cannula O2 Flow Rate 3.00 3.00 08/15/20 00:00 Intake Total 1240 ml Balance 1240 ml Constitutional: AAO x 3, well-developed, well-nourished Respiratory: chest is bilaterally symmetric, crackles (coarse breath sounds left side, base) Cardiovascular: regular rate-rhythm, S1 and S2 Gastrointestional: soft, audible bowel sounds Genital/Rectal: other (pt has normal circumcised genitalia, but has bruising all over penis and scrotum) Extremities: swelling (bilat LE swelling, pitting and non-pitting); No clubbing, No cyanosis Neurologic/Psychiatric: grossly intact (moves all extremities) Skin: other (excoriations to groin folds bilat) Results/Procedures: Labs Procedures NAME: [facility] REC#: [id number] PT STATUS: ADM IN : 1940 PHYSICIAN: ANDERS PIERCE MD ADMIT DATE: 08/11/20/ICU Signed Date of Exam:08/13/20 CT ANGIO CHEST W PROCEDURE: CT angiography of the chest with contrast. TECHNIQUE: Multiple contiguous axial images were obtained through the chest after uneventful bolus administration of intravenous contrast. 3D reconstructed CTA MIP acquisitions were also performed. Auto Exposure Controls were utilized during the CT exam to meet ALARA standards for radiation dose reduction. INDICATION: Hypoxia. History of prostate cancer. Evaluate for PE. COMPARISON: None. FINDINGS: This helical CT pulmonary angiogram is diagnostic to the subsegmental level branches of the pulmonary artery and demonstrates no pulmonary emboli. The heart and great vessels are unremarkable. There is no pericardial effusion. There is calcified aortic and coronary atherosclerotic plaque without aneurysm. There is no axillary, mediastinal, or hilar adenopathy. Bilateral moderate pleural effusions are seen with bibasilar atelectasis. No pulmonary mass is present. No central endobronchial obstructing lesions. No evidence of pneumothorax. Osseous structures appear normal. Limited views of the upper abdomen are unremarkable. IMPRESSION: 1. No acute pulmonary embolus. 2. Moderate bilateral pleural effusions with bibasilar consolidative opacities likely representing atelectasis. Dictated by: Dictated on workstation # [id number] Dict: 08/13/20 1344 Trans: 08/13/20 1356 [facility] [id number] Interpreted by: JEANNE BOYKIN DO Electronically signed by: JEANNE BOYKIN DO 08/13/20 9826 ADDENDUM REPORT ADDENDUM: Please add to findings and impression: A large hiatal hernia is seen with intrathoracic stomach. There is also portions of the transverse colon and splenic flexure contained within this hiatal hernia. IMPRESSION: 1. No acute pulmonary embolus. 2. Moderate bilateral pleural effusions with bibasilar A/P: Assessment: Right leg pain of undetermined etiology possibly secondary to cellulitis per CT of the right LE on 08-13-20 CT of the right lower extremity on 08-13-20: Significant subjacent edema throughout the right lower extremity consistent with cellulitis. Vastus intermedius musculature of the thigh is abnormal in appearance and demonstrates heterogeneous density with areas of fluid density distally and the possibility of a multifocal fluid collections or abscesses within the muscle cannot be entirely excluded. No soft tissue gas is identified to suggest necrotizing fasciitis. No bony destructive changes or evidence of osteomyelitis is identified. Chronic SOB of undetermined etiology Chronic diastolic CHF No evidence of DVT of the RLE per venous duplex at [facility] H/O CABG x 3 vessel at [facility] in September 2019 Echocardiogram of 08-13-[address] Carreno showed LVEF 55-65%. Grade 2 diastolic dysfunction. Akinesis of basal inferoseptal myocardium. LA mod dilated. Mild MR. HTN HLD CKD DM Hypothyroidism Lg hiatal hernia - managment per Dr. Hernandez of surgical services Anemia of undetermined etiology Plan: RLE arterial duplex today Continue current medication regimen Request records from [place] Management of anemia per medical services Monitor lab closely Replace electrolytes Further recs will be based on his hospital course ALESHA CARROLL August 14, 2020 10:32
--- NOTE | 2020-08-14 10:45 | Physical Therapy Daily Note ---
PT Daily Note-Current Subjective Patient adamantly declined OOB activity due to right LE pain. Agrees to exercises only. Patient states, "I just want to go back to [place] to my doctor and the hospital there." Pain Numeric Pain Scale: 10-Worst Possible Pain Location: Right Location Body Site: Thigh Pain Description: Ache Mental Status Patient Orientation: Normal For Age Attachments: Oxygen Transfers SCALE: Activities may be completed with or without assistive devices. 4-Rrbhciawnp-dbribft completes the activity by him/herself with no assistance from a helper. 5-Set-up or Clean-up Assistance-helper sets up or cleans up; patient completes activity. [place] assists only prior to or following the activity. 4-Supervision or Touching Assistance-helper provides verbal cues and/or touching/steadying and/or contact guard assistance as patient completes activity. Assistance may be provided throughout the activity or intermittently. 3-Partial/Moderate Assistance-helper does LESS THAN HALF the effort. [place] lifts, holds or supports trunk or limbs, but provides less than half the effort. 2-Substantial/Maximal Assistance-helper does MORE THAN HALF the effort. [place] lifts or holds trunk or limbs and provides more than half the effort. 9-Svvwgvdtn-njxzbv does ALL the effort. Patient does none of the effort to complete the activity. Or, the assistance of 2 or more helpers is required for the patient to complete the activity. If activity was not attempted, code reason: 7-Patient Refused. 9-Not Applicable-not attempted and the patient did not perform the activity before the current illness, exacerbation or injury. 10-Not Attempted due to Environmental Limitations-(lack of equipment, weather restraints, etc.). 88-Not Attempted due to Medical Conditions or Safety Concerns. Weight Bearing Weight Bearing/Tolerated Weight Bearing/Tolerated Exercises Supine Ex: Ankle pumps, Quad Set, Heel Slides, Straight leg raise, Hip abd/add Supine Reps: 10 Assessment Patient tolerated minimal activity and remains in bed with needs met. Increase activity as tolerated by patient. PT Short Term Goals Short Term Goals Time Frame: August 19, 2020 Roll Left & Right: 5 Sit to lyin Lying to sitting on side of be: 5 Sit to stand: 5 Chair/bdg-ki-exbpq transfer: 5 Toilet transfer: 5 Car transfer: 5 Walk 10 feet: 5 Walk 50 feet with two turns: 5 PT Shelter Goals Hogshead Press Operator Goals PT Hogshead Press Operator Goals Time Frame: August 26, 2020 Roll Left & Right (QC): 6 Sit to Lying (QC): 6 Lying-Sitting on Side/Bed(QC): 6 Sit to Stand (QC): 6 Chair/Cmg-ij-Iobew Xfer(QC): 6 Toilet Transfer (QC): 6 Car Transfer (QC): 6 Does the Patient Walk: Yes Walk 10 feet (QC): 6 Walk 50ft with 2 Turns (QC): 6 Walk 150 ft (QC): 6 PT Plan Treatment/Plan Treatment Plan: Continue Plan of Care Treatment Plan: Bed Mobility, Functional Activity Nichelle, Functional Strength, Gait, Therapeutic Exercise, Transfers Treatment Duration: August 26, 2020 Frequency: 11 times per week Estimated Hrs Per Day: .5 hour per day Time/GCodes Time In: 1024 Time Out: 1035 Total Billed Treatment Time: 11 Total Billed Treatment 1 visit EX 11 min KIRT SANCHEZ PT August 14, 2020 10:45
--- NOTE | 2020-08-14 12:01 | Progress Note - Hospitalist ---
Subjective HPI/CC On Admission Date Seen by Provider: August 14, 2020 Time Seen by Provider: 11:59 Atilio Romo is an 79 year old male with PMH CAD s/p CABG, HTN, HLD, T2DM, hypothyroidism, CKD, who presented to [facility] with right leg swelling. His workup revealed an elevated troponin and he was transferred for NSTEMI. He denies any chest pain. He reports shortness of breath. He has been feeling weak. He says that the swelling with his leg has been slowly progressing. He had an ultrasound in the ER that showed no blood clot. He is not sure if they took veins from his leg when he had his bypass last September. Subjective/Events-last exam pt reports feeling better today but still hopeful to just be able to get his hiatal hernia fixed. Objective Exam Vital Signs Vital Signs Date Time Temp Pulse Resp B/P (MAP) Pulse Ox O2 Delivery O2 Flow Rate FiO2 08/15/20 07:00 96 08/15/20 03:07 36.5 20 109/65 (80) 94 Nasal Cannula 3.00 Capillary Refill : Less Than 3 Seconds General Appearance: No Apparent Distress, Chronically ill, Cachetic Respiratory: Lungs Clear, No Respiratory Distress Cardiovascular: Regular Rate, Rhythm, No Murmur Extremity: Swelling (bilateral buyt right worse than left) Neurologic/Psychiatric: Alert, Oriented x3 Results/Procedures Lab Patient resulted labs reviewed. Imaging: Reviewed Imaging Report Assessment/Plan Assessment and Plan Assess & Plan/Chief Complaint Elevated troponin CAD s/p CABG Troponin mildly elevated Cardiology consulted, appreciate assistance Continue ASA and Plavix Echo with normal EF, grade 2 diastolic dysfunction, basal inferoseptal akinesis Planning for conservative management, does not appear to be acute AR Records requested Acute respiratory failure with hypoxia Right leg swelling Ultrasound negative for DVT at [facility] Requiring supplemental oxygen PCTA negative for PE CT leg with vastus intermedius abscess vs multifocal fluid collection Arterial doppler ordered Consult general surgery, appreciate assistance Anemia Hgb 7.8 on arrival, 8.4 today Occult blood ordered Iron studies pending General surgery consulted, appreciate assistance T2DM with hypoglycemia Hold home meds Normoglycemic Stop sliding scale insulin CKD Cr 1.12, unclear baseline IV fluids Continue to monitor HTN HLD Hypothyroid Continue home meds Submandibular lymphadenopathy Unclear significance CT Neck unremarkable YENNY CASTELAN MD August 14, 2020 12:01
--- NOTE | 2020-08-14 15:31 | Occupational Therapy Eval ---
OT Evaluation-General/PLF Medical Diagnosis Admission Date August 11, 2020 at 20:26 Medical Diagnosis: NSTEMI Onset Date: August 11, 2020 Therapy Diagnosis Therapy Diagnosis: Weakness, Decreased ADL skills Precautions Precautions/Isolations: Fall Prevention, Standard Precautions Weight Bear Status Weight Bearing Restriction: Weight Bearing/Tolerated Referral Physician: pankaj Referral Reason: Activity Tolerance, Self Care, Evaluation/Treatment, Strengthening/ROM Medical History Pertinent Medical History: CABG, CAD, DM Additional Medical History HLD Current History Pt. with hiatal hernia. Experiencing right LE swelling and pain. Multiple tests completed. No DVT at this time noted per nursing. Reviewed History: Yes Social History Home: Single Level Current Living Status: Spouse Entry Into Home: Level Entry ADL-Prior Level of Function SCALE: Activities may be completed with or without assistive devices. 0-Vpahuhktqb-qydyhyx completes the activity by him/herself with no assistance from a helper. 5-Set-up or Clean-up Assistance-helper sets up or cleans up; patient completes activity. [place] assists only prior to or following the activity. 4-Supervision or Touching Assistance-helper provides verbal cues and/or touching/steadying and/or contact guard assistance as patient completes activity. Assistance may be provided throughout the activity or intermittently. 3-Partial/Moderate Assistance-helper does LESS THAN HALF the effort. [place] l ifts, holds or supports trunk or limbs, but provides less than half the effort. 2-Substantial/Maximal Assistance-helper does MORE THAN HALF the effort. [place] lifts or holds trunk or limbs and provides more than half the effort. 3-Kfkbkjgnz-fshoyl does ALL the effort. Patient does none of the effort to complete the activity. Or, the assistance of 2 or more helpers is required for t he patient to complete the activity. If activity was not attempted, code reason: 7-Patient Refused. 9-Not Applicable-not attempted and the patient did not perform the activity before the current illness, exacerbation or injury. 10-Not Attempted due to Environmental Limitations-(lack of equipment, weather restraints, etc.). 88-Not Attempted due to Medical Conditions or Safety Concerns. ADL PLOF Comments Pt. states that he lives with spouse. He uses a walker. He is able to complete most ADLs with some assistance from spouse. Self Care: Needed Some Help Functional Cognition: Independent DME/Equipment Comments Walker Occupation: Retired OT Current Status Subjective Pt. reports pain in right LE with standing, but does not report pain level. Does not request pain medication. Appearance Pt. seen twice this date. Alert and oriented both times. Mental Status/Objective Patient Orientation: Person, Place, Time, Situation Current Upper Extremity ROM Pt. demonstrates 90 degrees in left shoulder, and approximately 60 degrees in right. ADL-Treatment Eating (QC): 5 On/Off Footwear (QC): 2 Other Treatments OT attempted treatment first time. Pt. in bed. Lunch being delivered. OT set up tray for pt. by opening packages. Pt. unable to lean forward efficiently enough to eat, so OT sherri pt. forward and put another pillow behind his back. Talked with pt. briefly, and then let him eat. OT came back later in afternoon. Pt. agrees to evaluation. Pt. transfers supine-sit with max assist. Unable to doff/don slipper socks. Pt. is able to sit on EOB unsupported, but does have to shift throughout for comfort. Pt. sits EOB approximately 15minutes. Pt. does not come up to full stand, but is able to scoot self to HOB with small half stands without use of walker. Requires max assist for sit-supine. All needs met at bed level. Education OT Patient Education: Correct positioning, Modified ADL techniques, Progress toward Goal/Update tx plan, Purpose of tx/functional activities, Reviewed precautions, Rehab process, Transfer techniques Teaching Recipient: Patient Teaching Methods: Demonstration, Discussion Response to Teaching: Verbalize Understanding, Return Demonstration OT Short Term Goals Short Term Goals Time Frame: August 21, 2020 Eatin Oral hygiene: 5 Toileting hygiene: 3 Shower/bathe self: 3 Upper body dressin Lower body dressin Putting on/taking off footwear: 3 OT Box Toe Stitcher Goals Mcc Goals Time Frame: August 28, 2020 Eating (QC): 6 Oral Hygiene (QC): 6 Toileting Hygiene (QC): 5 Shower/Bathe Self (QC): 4 Upper Body Dressing (QC): 5 Lower Body Dressing (QC): 4 On/Off Footwear (QC): 4 Additional Goals: 1-Demonstrate ADL Tasks, 2-Verbalize Understanding, 3- ImproveStrength/Nichelle 1=Demonstrate adherence to instructed precautions during ADL tasks. 2=Patient will verbalize/demonstrate understanding of assistive devices/mo difications for ADL. 3=Patient will improve strength/tolerance for activity to enable patient to perform ADL's. OT Education/Plan Problem List/Assessment Assessment: Decreased Activ Tolerance, Decreased UE Strength, Dependent Transfers, Impaired Bed Mobility, Impaired Funct Balance, Impaired I ADL's, Impaired Self-Care Skills, Restricted Funct UE ROM Discharge Recommendations Plan/Recommendations: Continue POC Therapy Discharge Recommendati: Post Acute OT Treatment Plan/Plan of Care Treatment,Training & Education: Yes Patient would benefit from OT for education, treatment and training to promote independence in ADL's, mobility, safety and/or upper extremity function for ADL's. Plan of Care: ADL Retraining, Functional Mobility, UE Funct Exercise/Act Treatment Duration: August 28, 2020 Frequency: 5 times per week Estimated Hrs Per Day: .25 hour per day Agreement: Yes Rehab Potential: Good Time/GCodes Start Time: 13:20 Stop Time: 14:45 Total Time Billed (hr/min): 25 Billed Treatment Time [id number] 1, visitx 10minutes [id number] 1, EVH x 15minutes CALVIN DENNEY OT August 14, 2020 15:31
[2020-08-14] MEDS ORDERED: ATOR40TA70 PO (15:43)
[2020-08-14] MEDS ORDERED: POTA20TA15 PO (15:43)
[2020-08-14] MEDS ORDERED: MULT-1136 PO (15:43)
[2020-08-14] MEDS ORDERED: KRIL500C PO (15:43)
[2020-08-14] MEDS ORDERED: CARB15DR OU (15:43)
[2020-08-14] MEDS ORDERED: GLIP10TA13 PO (15:43)
[2020-08-14] MEDS ORDERED: LEVO75TA PO (15:43)
[2020-08-14] MEDS ORDERED: INUL1TAB4 PO (15:43)
[2020-08-14] MEDS ORDERED: PANT40TA52 PO (15:43)
[2020-08-14] MEDS ORDERED: ASPI-1238 PO (15:43)
[2020-08-14] MEDS ORDERED: FINA5TAB6 PO (15:43)
[2020-08-14] MEDS ORDERED: MIDO5TAB3 PO (15:43)
[2020-08-14] MEDS ORDERED: TIMO5DRO5 OU (15:43)
[2020-08-14] MEDS ORDERED: TRAZ-227 PO (15:43)
[2020-08-14] MEDS ORDERED: FURO40TA4 PO (15:43)
--- NOTE | 2020-08-14 16:24 | Progress Note - Surgery ---
Subjective Time Seen by a Provider: 16:02 Subjective/Events-last exam Pt seen and examined, states leg is ok but his scrotum is "bad" now. Minimal pain in his leg. Review of Systems General: Fatigue Pulmonary: Dyspnea; No Cough Cardiovascular: Chest Pain; No: Palpitations Gastrointestinal: No: Nausea, Vomiting, Abdominal Pain Objective Exam Vital Signs Date Time Temp Pulse Resp B/P (MAP) Pulse Ox O2 Delivery O2 Flow Rate FiO2 08/14/20 12:00 36.1 95 16 107/59 (75) 96 Nasal Cannula 3.00 08/14/20 08:00 35.8 102 16 99/62 (74) 98 Nasal Cannula 3.00 08/14/20 08:00 96 Nasal Cannula 3.00 08/14/20 07:10 Nasal Cannula 3.00 08/14/20 06:55 100 08/14/20 03:51 36.8 92 20 105/59 (74) 98 Nasal Cannula 3.00 08/14/20 01:00 100 08/13/20 23:12 36.8 98 22 109/65 (80) 96 Nasal Cannula 3.00 08/13/20 20:38 37.2 92 20 105/56 (72) 97 Nasal Cannula 3.00 08/13/20 20:21 94 Nasal Cannula 3.00 08/13/20 19:00 79 I & O 08/14/20 07:00 Intake Total 1050 ml Output Total 1400 ml Balance -350 ml Capillary Refill : Less Than 3 Seconds General Appearance: No Apparent Distress, Chronically ill, Cachetic HEENT: PERRL/EOMI Neck: Supple, Lymphadenopathy (L), Lymphadenopathy (R) Respiratory: Lungs Clear, No Respiratory Distress, Decreased Breath Sounds Cardiovascular: Regular Rate, Rhythm, No Murmur Gastrointestinal: non tender, soft, no organomegaly Extremity: Swelling (bilateral but right worse than left, no erythema) Neurologic/Psychiatric: Alert, Oriented x3 Skin: Other (pt has macerated skin and blood blisters on his scotum) Results Lab Laboratory Tests 08/13/20 20:22: Glucometer 137H 08/14/20 05:23: White Blood Count 6.9, Red Blood Count 3.11L, Hemoglobin 8.4L, Hematocrit 27L, Mean Corpuscular Volume 86, Mean Corpuscular Hemoglobin 27, Mean Corpuscular Hemoglobin Concent 31L, Red Cell Distribution Width 16.0H, Platelet Count 272, Mean Platelet Volume 9.8, Immature Granulocyte % (Auto) 0, Neutrophils (%) (Auto) 78H, Lymphocytes (%) (Auto) 13, Monocytes (%) (Auto) 8, Eosinophils (%) (Auto) 0, Basophils (%) (Auto) 0, Neutrophils # (Auto) 5.4, Lymphocytes # (Auto) 0.9L, Monocytes # (Auto) 0.6, Eosinophils # (Auto) 0.0, Basophils # (Auto) 0.0, Immature Granulocyte # (Auto) 0.0, Sodium Level 140, Potassium Level 3.9, Chloride Level 105, Carbon Dioxide Level 27, Anion Gap 8, Blood Urea Nitrogen 53H, Creatinine 1.12, Estimat Glomerular Filtration Rate > 60, BUN/Creatinine Ratio 47, Glucose Level 103, Calcium Level 8.7 Assessment/Plan Assessment/Plan Assessment/Plan Right Leg Edema - no surgery indicated at this time Hiatal Hernia - large, with colon and stomach up in left chest. Bilateral Pleural effusions NSTEMI Skin breakdown of Scrotum Pt is getting wound care consult for his scrotum and will not need any I&D for the leg; therefore, I will sign off and reconsult if needed. MARY NESBITT DO August 14, 2020 16:24
--- NOTE | 2020-08-14 16:36 | Progress Note - Cardiology ---
Cardiology SOAP Progress Note Subjective: No cp or palp or syncope or shortness of breath Had come in to the hospital for R leg discomfort that is still present (albeit improved) No n/v/d Gen malaise present Objective: I&O/Vital Signs 08/14/20 08/14/20 08/14/20 08/14/20 06:55 07:10 08:00 08:00 Temp 35.8 Pulse 100 102 Resp 16 B/P (MAP) 99/62 (74) Pulse Ox 96 98 O2 Delivery Nasal Cannula Nasal Cannula Nasal Cannula O2 Flow Rate 3.00 3.00 3.00 08/14/20 12:00 Temp 36.1 Pulse 95 Resp 16 B/P (MAP) 107/59 (75) Pulse Ox 96 O2 Delivery Nasal Cannula O2 Flow Rate 3.00 08/14/20 00:00 Intake Total 575 ml Output Total 625 ml Balance -50 ml Constitutional: AAO x 3, well-developed, well-nourished Respiratory: chest is bilaterally symmetric, crackles (coarse breath sounds left side, base) Cardiovascular: regular rate-rhythm, S1 and S2 Gastrointestional: soft, audible bowel sounds Genital/Rectal: other (pt has normal circumcised genitalia, but has bruising all over penis and scrotum) Extremities: swelling (bilat LE swelling, pitting and non-pitting); No clubbing, No cyanosis Neurologic/Psychiatric: grossly intact (moves all extremities) Skin: other (excoriations to groin folds bilat) Results/Procedures: Labs Laboratory Tests 08/13/20 20:22: Glucometer 137H 08/14/20 05:23: White Blood Count 6.9, Red Blood Count 3.11L, Hemoglobin 8.4L, Hematocrit 27L, Mean Corpuscular Volume 86, Mean Corpuscular Hemoglobin 27, Mean Corpuscular Hemoglobin Concent 31L, Red Cell Distribution Width 16.0H, Platelet Count 272, Mean Platelet Volume 9.8, Immature Granulocyte % (Auto) 0, Neutrophils (%) (Auto) 78H, Lymphocytes (%) (Auto) 13, Monocytes (%) (Auto) 8, Eosinophils (%) (Auto) 0, Basophils (%) (Auto) 0, Neutrophils # (Auto) 5.4, Lymphocytes # (Auto) 0.9L, Monocytes # (Auto) 0.6, Eosinophils # (Auto) 0.0, Basophils # (Auto) 0.0, Immature Granulocyte # (Auto) 0.0, Sodium Level 140, Potassium Level 3.9, Chloride Level 105, Carbon Dioxide Level 27, Anion Gap 8, Blood Urea Nitrogen 53H, Creatinine 1.12, Estimat Glomerular Filtration Rate > 60, BUN/Creatinine Ratio 47, Glucose Level 103, Calcium Level 8.7 Laboratory Tests 08/13/20 02:30 08/14/20 05:23 A/P: Assessment: Right leg pain of undetermined etiology possibly secondary to cellulitis per CT of the right LE on 08-13-20 CT of the right lower extremity on 08-13-20: Significant subjacent edema throughout the right lower extremity consistent with cellulitis. Vastus intermedius musculature of the thigh is abnormal in appearance and demonstrates heterogeneous density with areas of fluid density distally and the possibility of a multifocal fluid collections or abscesses within the muscle cannot be entirely excluded. No soft tissue gas is identified to suggest necrotizing fasciitis. No bony destructive changes or evidence of osteomyelitis is identified. Mildly elevated troponin: probably type 2 [place] due to severe anemia in the setting of known CAD Chronic SOB of undetermined etiology Chronic diastolic CHF No evidence of DVT of the RLE per venous duplex at [facility] H/O CABG x 3 vessel at [facility] in September 2019 Echocardiogram of 08-13-[address] Carreno showed LVEF 55-65%. Grade 2 diastolic dysfunction. Akinesis of basal inferoseptal myocardium. LA mod dilated. Mild MR. 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 Hernandez of surgical services Anemia of undetermined etiology, managed by Med and Surg services Plan: RLE arterial duplex today Continue current medication regimen Request records from [facility] recommended Management of anemia per Medical services Monitor lab closely Replace electrolytes Further recs will be based on his hospital course LELO DORSEY MD FACP FAC CCDS August 14, 2020 16:36
--- NOTE | 2020-08-14 18:07 | Diagnostic Imaging Report ---
INDICATION: Right leg pain Duplex ultrasound of the arterial system of the right leg was done with grayscale, spectral wave form and color Doppler flow analysis. Patient has triphasic arterial waveforms throughout the right leg with normal velocity transitions. IMPRESSION: Normal arterial Doppler right leg. Dictated by: Dictated on workstation # [id number]
--- NOTE | 2020-08-14 18:37 | Wound Care Assessment ---
Wound Care Assessment Date Seen by Provider: August 14, 2020 Time Seen by Provider: 18:31 Chief Complaint bleeding scrotal lesions. HPI The patient is an 79 year old male with ecchymotic lesions of the scrotal and bilateral inguinal crease areas, which have been bleeding. Currently stable with Vashe dressings. These may be related to anticoagulation from recent VT. Would continue same. Smoking Status: Never a Smoker Review of Systems Pulmonary: No Dyspnea Cardiovascular: No: Chest Pain Exam Vital Signs Date Time Temp Pulse Resp B/P (MAP) Pulse Ox O2 Delivery O2 Flow Rate FiO2 08/14/20 16:00 36.5 97 20 109/61 (77) 96 Nasal Cannula 3.00 Capillary Refill : Less Than 3 Seconds Skin: other (Scrotal ecchymosis.) Results Laboratory Tests 08/13/20 20:22: Glucometer 137H 08/14/20 05:23: White Blood Count 6.9, Red Blood Count 3.11L, Hemoglobin 8.4L, Hematocrit 27L, Mean Corpuscular Volume 86, Mean Corpuscular Hemoglobin 27, Mean Corpuscular Hemoglobin Concent 31L, Red Cell Distribution Width 16.0H, Platelet Count 272, Mean Platelet Volume 9.8, Immature Granulocyte % (Auto) 0, Neutrophils (%) (Auto) 78H, Lymphocytes (%) (Auto) 13, Monocytes (%) (Auto) 8, Eosinophils (%) (Auto) 0, Basophils (%) (Auto) 0, Neutrophils # (Auto) 5.4, Lymphocytes # (Auto) 0.9L, Monocytes # (Auto) 0.6, Eosinophils # (Auto) 0.0, Basophils # (Auto) 0.0, Immature Granulocyte # (Auto) 0.0, Sodium Level 140, Potassium Level 3.9, Chloride Level 105, Carbon Dioxide Level 27, Anion Gap 8, Blood Urea Nitrogen 53H, Creatinine 1.12, Estimat Glomerular Filtration Rate > 60, BUN/Creatinine Ratio 47, Glucose Level 103, Calcium Level 8.7 Assessment/Plan/Dx 1. diffuse bruising, possibly [id number] to recent VT and anticoagulation. Plan: Continue present dressings. Will sign off. PJ CARMEN MD August 14, 2020 18:37
[2020-08-14] MEDS: traZODone 100 MG (DESYREL) TAB PO SCH (20:59)
[2020-08-14] MEDS: ENOXAPARIN 40 MG/0.4 ML (LOVENOX) SYR SC SCH (21:00)
[2020-08-15] MEDS ORDERED: REGADENOSON 0.4 MG/5 ML SYR (LEXISCAN) IV ONE ×2 (08:00→12:45)
--- NOTE | 2020-08-15 10:48 | Progress Note - Hospitalist ---
Subjective HPI/CC On Admission Date Seen by Provider: August 15, 2020 Time Seen by Provider: 10:45 Atilio Romo is an 79 year old male with PMH CAD s/p CABG, HTN, HLD, T2DM, hypothyroidism, CKD, who presented to [facility] with right leg swelling. His workup revealed an elevated troponin and he was transferred for NSTEMI. He denies any chest pain. He reports shortness of breath. He has been feeling weak. He says that the swelling with his leg has been slowly progressing. He had an ultrasound in the ER that showed no blood clot. He is not sure if they took veins from his leg when he had his bypass last September. Subjective/Events-last exam Pt reports feeling better today but hungry. Awaiting stress test. No other concerns. Informed him of negative doppler of leg. Objective Exam Vital Signs Vital Signs Date Time Temp Pulse Resp B/P (MAP) Pulse Ox O2 Delivery O2 Flow Rate FiO2 08/15/20 07:00 96 08/15/20 03:07 36.5 20 109/65 (80) 94 Nasal Cannula 3.00 Capillary Refill : Less Than 3 Seconds General Appearance: No Apparent Distress, Chronically ill, Cachetic Respiratory: Lungs Clear, No Respiratory Distress Cardiovascular: Regular Rate, Rhythm, No Murmur Gastrointestinal: Normal Bowel Sounds, Soft Neurologic/Psychiatric: Alert, Oriented x3 Results/Procedures Lab Patient resulted labs reviewed. Imaging: Reviewed Imaging Report Assessment/Plan Assessment and Plan Assess & Plan/Chief Complaint Elevated troponin CAD s/p CABG Troponin mildly elevated Cardiology consulted, appreciate assistance Continue ASA and Plavix Echo with normal EF, grade 2 diastolic dysfunction, basal inferoseptal akinesis Stress test today Records requested, awaiting arrival Acute respiratory failure with hypoxia Right leg swelling Ultrasound negative for DVT at [facility] Requiring supplemental oxygen PCTA negative for PE CT leg with vastus intermedius abscess vs multifocal fluid collection- surgery reports no indication for drainage, signed off Arterial doppler negative Consulted general surgery, appreciate assistance Anemia Stable, trend Occult blood ordered and pending Iron low but TIBC also low with high ferritin General surgery consulted, appreciate assistance T2DM with hypoglycemia Hold home meds Normoglycemic Stop sliding scale insulin CKD Cr 1.12, unclear baseline IV fluids Continue to monitor HTN HLD Hypothyroid Continue home meds Submandibular lymphadenopathy Unclear significance CT Neck unremarkable YENNY CASTELAN MD August 15, 2020 10:48
--- NOTE | 2020-08-15 11:04 | Progress Note - Cardiology ---
Cardiology SOAP Progress Note Subjective: Lying in bed Feels SOB is unchanged from yesterday Feels R LE discomfort has improved somewhat No c/o CP or palpitations Objective: I&O/Vital Signs 08/15/20 08/15/20 08/16/20 08/16/20 21:00 23:44 00:09 01:00 Temp 36.4 Pulse 99 89 Resp 22 B/P (MAP) 104/53 (70) Pulse Ox 92 O2 Delivery Nasal Cannula Nasal Cannula Nasal Cannula O2 Flow Rate 3.00 3.00 4.00 08/16/20 08/16/20 08/16/20 08/16/20 04:47 06:54 08:00 08:52 Temp 36.3 35.6 Pulse 98 94 98 Resp 22 16 B/P (MAP) 105/61 (76) 98/61 (73) Pulse Ox 95 95 95 O2 Delivery Nasal Cannula Nasal Cannula Nasal Cannula O2 Flow Rate 4.00 4.00 4.00 08/16/20 00:00 Intake Total 1100 ml Output Total 410 ml Balance 690 ml Constitutional: AAO x 3, well-developed, well-nourished Respiratory: chest is bilaterally symmetric, crackles (coarse breath sounds left side, base) Cardiovascular: regular rate-rhythm, S1 and S2 Gastrointestional: soft, audible bowel sounds Genital/Rectal: other (pt has normal circumcised genitalia, but has bruising all over penis and scrotum) Extremities: swelling (bilat LE swelling, pitting and non-pitting); No clubbing, No cyanosis Neurologic/Psychiatric: grossly intact (moves all extremities) Skin: other (excoriations to groin folds bilat) Results/Procedures: Labs Laboratory Tests 08/16/20 05:30: White Blood Count 5.3, Red Blood Count 3.07L, Hemoglobin 8.3L, Hematocrit 26L, Mean Corpuscular Volume 86, Mean Corpuscular Hemoglobin 27, Mean Corpuscular Hemoglobin Concent 31L, Red Cell Distribution Width 15.8H, Platelet Count 256, Mean Platelet Volume 9.6, Sodium Level 139, Potassium Level 4.2, Chloride Level 104, Carbon Dioxide Level 28, Anion Gap 7, Blood Urea Nitrogen 66H, Creatinine 1.23, Estimat Glomerular Filtration Rate 57, BUN/Creatinine Ratio 54, Glucose Level 151H, Calcium Level 9.3 Procedures NAME: MOOSE,KELSIE E [facility] REC#: [id number] PT STATUS: ADM IN : 1940 PHYSICIAN: ALESHA CARROLL ADMIT DATE: 08/11/20 Signed Date of Exam:08/14/20 US RIGHT LOW EXT [id number] INDICATION: Right leg pain Duplex ultrasound of the arterial system of the right leg was done with grayscale, spectral wave form and color Doppler flow analysis. Patient has triphasic arterial waveforms throughout the right leg with normal velocity transitions. IMPRESSION: Normal arterial Doppler right leg. Dictated by: Dictated on workstation # [id number] Dict: 08/14/208 Trans: 08/14/201852 [facility] [id number] Interpreted by: JOCE YOUSSEF MD Electronically signed by: JOCE YOUSSEF MD 08/14/201852 A/P: Assessment: Right leg pain of undetermined etiology possibly secondary to cellulitis per CT of the right LE on 08-13-20 Right lower extremity arterial doppler was normal on 08-14-20 CT of the right lower extremity on 08-13-20: Significant subjacent edema throughout the right lower extremity consistent with cellulitis. Vastus intermedius musculature of the thigh is abnormal in appearance and demonstrates heterogeneous density with areas of fluid density distally and the possibility of a multifocal fluid collections or abscesses within the muscle cannot be entirely excluded. No soft tissue gas is identified to suggest necrotizing fasciitis. No bony destructive changes or evidence of osteomyelitis is dasia ntified. Mildly elevated troponin: probably type 2 [place] due to severe anemia in the setting of known CAD Chronic SOB of undetermined etiology Chronic diastolic CHF No evidence of DVT of the RLE per venous duplex at [facility] H/O CABG x 3 vessel at [facility] in September 2019 Echocardiogram of 08-13-[address] Carreno showed LVEF 55-65%. Grade 2 diastolic dysfunction. Akinesis of basal inferoseptal myocardium. LA mod dilated. Mild MR. 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 Hernandez of surgical services Anemia of undetermined etiology, managed by Med and Surg services Plan: RLE doppler on 08-14-20 is normal RLE discomfort likely secondary to cellulitis - management per medical services Continue current medication regimen Request records from [place] - have not received yet MPI today Management of anemia per Medical services Monitor lab closely Replace electrolytes ALESHA CARROLL August 15, 2020 11:04
[2020-08-15] MEDS ORDERED: CATHETER FLUSH 10 ML SYR IV PRN (11:15)
--- NOTE | 2020-08-15 11:15 | Physical Therapy Progress Note ---
Therapy Progress Note Patient adamantly declined PT for the day due to fatigue and having a stress test. PT will attempt in a.m. 1 ref ([id number]) KIRT SANCHEZ PT August 15, 2020 11:15
[2020-08-15 12:00] VITALS: BP 110/64
[2020-08-15 13:12] VITALS: BP 102/56
--- NOTE | 2020-08-15 14:23 | Occ Therapy Progress Note ---
Therapy Progress Note Pt. in procedure when OT attempted treatment. OT will attempt back as time allows. [id number] CALVIN DENNEY OT August 15, 2020 14:23
[2020-08-15] MEDS: ASPIRIN 81 MG CHEW (CHILDREN'S ASA) PO SCH (14:34)
[2020-08-15] MEDS: CLOPIDOGREL 75 MG (PLAVIX) TABLET PO SCH (14:34)
--- NOTE | 2020-08-15 16:00 | Physician Query Clarification ---
Physician Query-General Query to Physician: The medical record reflects the following clinical evidence: Clinical Indicators: Nursing documentation of open area/skin broken on Coccyx with redness to buttock that is non Blanchable on the admission assessment. Risk Factor(s): weakness, decreased mobility with leg swelling, Current smoker, other chronic illnesses Treatment: Pressure reducing strategies, Wound and skin Consult, Allevyn 1. Pressure ulcer of sacral region, stage 2 present on admission 2. Other explanation of clinical findings 3. Unable to determine (no explanation for clinical findings) Please clarify and document your clinical opinion in the progress notes and discharge summary including the definitive and/or presumptive diagnosis, (suspected or probable), related to the above clinical findings. Please include clinical findings supporting your diagnosis. Liliya Nielsen [phone] [email or web address] PHYSICIAN RESPONSE: Based on the clinical findings in the record, please respond to the query above on this document as an addendum. Physician Response: Physician Response 1 If you have questions please contact: Bus Assistant: Ext: Thank you for your time and cooperation. Clinical Embedded Systems Developer/Bus Assistant This is a permanent part of the medical record LILIYA NIELSEN August 15, 2020 16:00 YENNY CASTELAN MD August 16, 2020 19:23
[2020-08-15 16:07] VITALS: BP 121/72
--- NOTE | 2020-08-15 16:17 | STRESS TEST ---
DATE OF SERVICE: 08/15/2020 RESTING AND POST REGADENOSON TECHNETIUM-99M TETROFOSMIN SPECT CT IMAGING ORDERING PHYSICIAN: Daija Spivey APRN ATTENDING PHYSICIAN: Dr. Pushpa Bass. CLINICAL DIAGNOSES: Coronary artery disease, elevated troponin. Baseline images were carried out after injection of 10.93 mCi of technetium-99m Tetrofosmin. This was followed by 0.4 mg regadenoson and 30.8 mCi of technetium-99m Tetrofosmin for stress imaging. The electrocardiogram showed atrial fibrillation throughout the study. The ventricular response averaged about 110 beats per minute. The patient did not report symptoms. He tolerated the procedure well. Review of images at rest and following stress does not indicate any distinct perfusion defects consistent with significant myocardial ischemia or infarction. Some degree of diaphragmatic attenuation seen both at rest and following regadenoson infusion. Gated images show normal global left ventricular systolic function with normal regional wall motion. Left ventricular ejection fraction is calculated to be 63%. Left ventricular end-diastolic volume is 42 mL. TID is absent (0.98). CONCLUSIONS: 1. No evidence of any significant myocardial ischemia or infarction on this study. 2. Normal regional wall motion. 3. Normal global left ventricular systolic function with a calculated ejection fraction of 63%. Job ID: [id number] DocumentID: [id number] Dictated Date: 08/15/2020 15:27:57 Literary Agent Date: 08/15/2020 16:15:09 Dictated By: LELO DORSEY MD, MA, FACP, FACC, MTDD
--- NOTE | 2020-08-15 16:32 | Physician Query Clarification ---
Physician Query-General Query to Physician: The medical record reflects the following clinical scenario: The patient, in the setting of History/Risk factors, CAD, HTN, Anemia (7.8) Clinical Findings Shortness of breath, Weakness Troponins 0.085 and 0.075, "Transferred for NSTEMI", Treatment Aspirin, Plavix, Lovenox, (There is conflicting documentation on the chart regarding NSTEMI/Type II PA being valid or invalid) Question: Do you agree with the impression of probable Type II PA per Dr. Josef Greene? 1. Yes; will document Type II PA present on admission in the Progress Notes 2. No; will continue to document Elevated Troponin (Type II PA ruled out or not a valid DX) in the Progress Notes 3. Other; will document explanation of clinical findings 4. Clinically undetermined; no explanation for clinical findings Please clarify and document your clinical opinion in the Progress Notes and Discharge Summary including the definitive and/or presumptive diagnosis, (suspected or probable), related to the above clinical findings. Please include clinical findings supporting your diagnosis. In responding to this query, please exercise your independent professional judgment. The purpose of this communication is to more accurately reflect the complexity of your patients condition. The fact that a question is asked does not imply that any particular answer is desired or expected. Please remember a lack of response to the above will prompt a phone page by CDI/coding staff Thank you for timely response to this clarification. Liliya Mendenhall [phone] PHYSICIAN RESPONSE: Based on the clinical findings in the record, please respond to the query above on this document as an addendum. Physician Response: Physician Response 1 If you have questions please contact: Senior Architect/Design Manager: Ext: Thank you for your time and cooperation. Clinical Operations Intelligence Superintendent/Senior Architect/Design Manager This is a permanent part of the medical record LILIYA MENDENHALL August 15, 2020 16:32 YENNY CASTELAN MD August 16, 2020 19:23
--- NOTE | 2020-08-15 17:27 | Progress Note - Cardiology ---
Cardiology SOAP Progress Note Subjective: No cp or palp or syncope or shortness of breath Persistent R leg pain and swelling (the symptoms with which he has been hospitalized) No n/v/d Some gen malaise and weakness Objective: I&O/Vital Signs 08/15/20 08/15/20 08/15/20 08/15/20 07:00 08:00 08:00 12:00 Temp 36.0 35.6 Pulse 96 104 101 Resp 18 16 B/P (MAP) 107/63 (78) 110/64 (79) Pulse Ox 94 93 93 O2 Delivery Nasal Cannula Nasal Cannula Nasal Cannula O2 Flow Rate 3.00 3.00 3.00 08/15/20 08/15/20 08/15/20 08/15/20 12:00 12:46 13:12 16:07 Temp 35.6 36.7 Pulse 101 105 96 Resp 16 18 B/P (MAP) 110/64 (79) 102/56 (71) 121/72 (88) Pulse Ox 93 91 O2 Delivery Nasal Cannula Nasal Cannula O2 Flow Rate 3.00 3.00 08/15/20 00:00 Intake Total 1240 ml Balance 1240 ml Constitutional: AAO x 3, well-developed, well-nourished Respiratory: chest is bilaterally symmetric, crackles (coarse breath sounds left side, base) Cardiovascular: regular rate-rhythm, S1 and S2 Gastrointestional: soft, audible bowel sounds Genital/Rectal: other (pt has normal circumcised genitalia, but has bruising all over penis and scrotum) Extremities: swelling (bilat LE swelling, pitting and non-pitting); No clubbing, No cyanosis Neurologic/Psychiatric: grossly intact (moves all extremities) Skin: other (excoriations to groin folds bilat) A/P: Assessment: Right leg pain of undetermined etiology, suspected to be due to cellulitis (per CT of the right LE on 08-13-20) No clinical or Doppler evidence of limb ischemia. Right lower extremity arterial Doppler was normal on 08-14-20 Mildly elevated troponin: probably type 2 [place] due to severe anemia in the setting of known CA - MPI on 08/15/20: No evidence of any significant myocardial ischemia or infarction, normal regional wall motion, LVEF 63%. No evidence of DVT of the RLE per venous Duplex at [facility] H/O CABG x 3 vessel at [facility] in September 2019 Echocardiogram of 08-13-[address] Carreno showed LVEF 55-65%. Grade 2 diastolic dysfunction. Akinesis of basal inferoseptal myocardium. LA mod dilated. Mild MR. 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 Hernandez of surgical services Anemia of undetermined etiology, managed by Med and Surg services Plan: No evidence of acute [place] or limb ischemia Limb pain does not appear to be related to CV issues. Management is by the Hospitalist svce Pt has severe anemia. Eval and management is by the Hospitalist svce Monitor lab closely Replace electrolytes LELO DORSEY MD FACP FAC CCDS August 15, 2020 17:27
[2020-08-15 20:28] VITALS: BP 121/72
[2020-08-15] MEDS: ENOXAPARIN 40 MG/0.4 ML (LOVENOX) SYR SC SCH (21:02)
[2020-08-15] MEDS: traZODone 100 MG (DESYREL) TAB PO SCH (21:02)
[2020-08-16] VITALS (8 sets, daily range): BP systolic 98–117; BP diastolic 53–67
[2020-08-16 05:51] LABS: HEMATOCRIT 26 % (40-54); HEMOGLOBIN 8.3 g/dL (13.3-17.7); MEAN CORPUSCULAR HEMOGLOBIN 27 pg (25-34); MEAN CORPUSCULAR HGB CONC 31 g/dL (32-36); MEAN CORPUSCULAR VOLUME 86 fL (80-99); MEAN PLATELET VOLUME 9.6 fL (9.0-12.2); PLATELET COUNT 256 10^3/uL (130-400); WHITE BLOOD COUNT 5.3 10^3/uL (4.3-11.0)
[2020-08-16 06:04] LABS: POTASSIUM 4.2 MMOL/L (3.6-5.0)
[2020-08-16 06:05] LABS: CALCIUM 9.3 MG/DL (8.5-10.1)
[2020-08-16 06:10] LABS: CREATININE SERUM 1.23 MG/DL (0.60-1.30)
[2020-08-16] MEDS: CLOPIDOGREL 75 MG (PLAVIX) TABLET PO SCH (08:31)
[2020-08-16] MEDS: ASPIRIN 81 MG CHEW (CHILDREN'S ASA) PO SCH (08:31)
--- NOTE | 2020-08-16 08:55 | Physical Therapy Progress Note ---
Therapy Progress Note Patient refused tx this morning. He says he is "not interested in physical therapy". Patient educated on the benefits of therapy but he continues to refuse. When asked if he would participate in therapy this afternoon he said "don't bother". Patient will be discharged from PT at this time. HARJEET DIAS PT August 16, 2020 08:54
--- NOTE | 2020-08-16 09:26 | Progress Note - Cardiology ---
Cardiology SOAP Progress Note Subjective: Sitting up in bed Wants to go home Continues to c/o right leg pain, but reports it is better, but he states he still can not stand or walk on it No c/o CP Feels SOB has improved Objective: I&O/Vital Signs 08/16/20 08/17/20 08/17/20 08/17/20 23:27 01:03 03:17 06:54 Temp 36.9 36.7 Pulse 93 102 90 104 Resp 20 20 B/P (MAP) 107/55 (72) 106/69 (81) Pulse Ox 94 95 O2 Delivery Nasal Cannula Nasal Cannula O2 Flow Rate 4.50 4.50 08/17/20 08:00 O2 Delivery Nasal Cannula O2 Flow Rate 4.00 08/17/20 00:00 Intake Total 980 ml Output Total 1175 ml Balance -195 ml Constitutional: AAO x 3, well-developed, well-nourished Respiratory: chest is bilaterally symmetric, crackles (coarse breath sounds left side, base) Cardiovascular: regular rate-rhythm, S1 and S2 Gastrointestional: soft, audible bowel sounds Genital/Rectal: other (pt has normal circumcised genitalia, but has bruising all over penis and scrotum) Extremities: swelling (bilat LE swelling, pitting and non-pitting); No clubbing, No cyanosis Neurologic/Psychiatric: grossly intact (moves all extremities) Skin: other (excoriations to groin folds bilat) Results/Procedures: Labs Laboratory Tests 08/17/20 00:45: Stool Occult Blood Immunoassay POSITIVEH A/P: Assessment: Right leg pain of undetermined etiology, suspected to be due to cellulitis (per CT of the right LE on 08-13-20) No clinical or Doppler evidence of limb ischemia. Right lower extremity arterial Doppler was normal on 08-14-20 Mildly elevated troponin: probably type 2 [place] due to severe anemia in the setting of known CA - MPI on 08/15/20: No evidence of any significant myocardial ischemia or infarction, normal regional wall motion, LVEF 63%. No evidence of DVT of the RLE per venous Duplex at [facility] H/O CABG x 3 vessel at [facility] in September 2019 Echocardiogram of 08-13-[address] Carreno showed LVEF 55-65%. Grade 2 diastolic dysfunction. Akinesis of basal inferoseptal myocardium. LA mod dilated. Mild MR. 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 Hernandez of surgical services Anemia of undetermined etiology, managed by Med and Surg services Plan: No evidence of acute PR or limb ischemia Limb pain does not appear to be related to CV issues. Management is by the Hospitalist terra Pt has severe anemia. Eval and management is by the Hospitalist svce Monitor lab closely Replace electrolytes OK for discharge from cardiac stand point Discussed with Dr Waldrop this morning ALESHA CARROLL August 16, 2020 09:26
[2020-08-16] MEDS ORDERED: CLOP75TA28 PO (09:47)
--- NOTE | 2020-08-16 10:56 | Physical Therapy Daily Note ---
PT Daily Note-Current Subjective Dr. Waldrop talked to this therapist about trying patient again, she says she talked with him and he agrees to participate in PT. Patient does agree to participate in PT, has no complaints of pain at rest but has significant unrated pain in right leg with ambulation. Patient states he cannot stand from lower surfaces like the toilet here at the hospital. Appearance Patient in bed post tx with nurse call, phone, tray, all needs met. Mental Status Patient Orientation: Person, Place, Situation Attachments: Oxygen Transfers SCALE: Activities may be completed with or without assistive devices. 7-Ldssyamtmb-zuhlbzj completes the activity by him/herself with no assistance from a helper. 5-Set-up or Clean-up Assistance-helper sets up or cleans up; patient completes activity. [place] assists only prior to or following the activity. 4-Supervision or Touching Assistance-helper provides verbal cues and/or touching/steadying and/or contact guard assistance as patient completes activity. Assistance may be provided throughout the activity or intermittently. 3-Partial/Moderate Assistance-helper does LESS THAN HALF the effort. [place] lifts, holds or supports trunk or limbs, but provides less than half the effort. 2-Substantial/Maximal Assistance-helper does MORE THAN HALF the effort. [place] lifts or holds trunk or limbs and provides more than half the effort. 2-Hommluwxs-tyxxul does ALL the effort. Patient does none of the effort to complete the activity. Or, the assistance of 2 or more helpers is required for the patient to complete the activity. If activity was not attempted, code reason: 7-Patient Refused. 9-Not Applicable-not attempted and the patient did not perform the activity before the current illness, exacerbation or injury. 10-Not Attempted due to Environmental Limitations-(lack of equipment, weather restraints, etc.). 88-Not Attempted due to Medical Conditions or Safety Concerns. Roll Left & Right (QC): 6 Sit to Lying (QC): 3 Lying to Sitting/Side of Bed(Q: 3 Sit to Stand (QC): 4 Chair/Sqr-uh-Fkofe Xfer(QC): 4 Patient needs mod assist for supine <-> sit, CGA for sit to stand and transfers. Patient requires an elevated bed to stand from, states he cannot stand from lower surfaces. Weight Bearing Weight Bearing/Tolerated Weight Bearing/Tolerated Gait Training Distance: 40' Walk 10 feet (QC): 4 Gait Persons Needed: 1 Gait Assistive Device: FWW Patient ambulated 40' with a rolling walker with CGA. Patient has a slumped posture, very slow ambulation, no LOB though. Exercises Supine Ex: Ankle pumps, Quad Set, Glut sets Supine Reps: 20 Treatments bed mobility and transfers, ambulation, LE exercise Assessment Current Status: Fair Progress Patient ambulates with CGA but needs significant assist for getting in and out of bed, and assist scooting up in bed. PT Short Term Goals Short Term Goals Time Frame: August 19, 2020 Roll Left & Right: 5 Sit to lyin Lying to sitting on side of be: 5 Sit to stand: 5 Chair/kdf-dd-avlxz transfer: 5 Toilet transfer: 5 Car transfer: 5 Walk 10 feet: 5 Walk 50 feet with two turns: 5 PT Director Hardware Goals Longterm Goals PT Longterm Goals Time Frame: August 26, 2020 Roll Left & Right (QC): 6 Sit to Lying (QC): 6 Lying-Sitting on Side/Bed(QC): 6 Sit to Stand (QC): 6 Chair/Lug-gb-Vwrdj Xfer(QC): 6 Toilet Transfer (QC): 6 Car Transfer (QC): 6 Does the Patient Walk: Yes Walk 10 feet (QC): 6 Walk 50ft with 2 Turns (QC): 6 Walk 150 ft (QC): 6 PT Plan Problem List Problem List: Activity Tolerance, Functional Strength, Safety, Balance, Gait, Transfer, Bed Mobility, ROM Treatment/Plan Treatment Plan: Continue Plan of Care Treatment Plan: Bed Mobility, Functional Activity Nichelle, Functional Strength, Gait, Therapeutic Exercise, Transfers Treatment Duration: August 26, 2020 Frequency: 11 times per week Estimated Hrs Per Day: .5 hour per day Safety Risks/Education Patient Education: Gait Training, Transfer Techniques, Correct Positioning, Safety Issues Teaching Recipient: Patient Teaching Methods: Demonstration, Discussion Response to Teaching: Reinforcement Needed Time/GCodes Time In: 1025 Time Out: 1039 Total Billed Treatment Time: 14 Total Billed Treatment 1 visit FA 14' HARJEET DIAS PT August 16, 2020 10:56
--- NOTE | 2020-08-16 13:38 | Occupational Ther Daily Note ---
OT Current Status-Daily Note Subjective Pt. reports that his bottom hurts with movement, but does not report pain level. Does not request pain medication. Mental Status/Objective Patient Orientation: Person, Place, Time, Situation ADL-Treatment Therapy Code Descriptions/Definitions Functional [place] Measure: 0=Not Assessed/NA 4=Minimal Assistance 1=Total Assistance 5=Supervision or Setup 2=Maximal Assistance 6=Modified [place] 3=Moderate Assistance 7=Complete IndependenceSCALE: Activities may be completed with or without assistive devices. 5-Drxoikunpr-ineurhi completes the activity by him/herself with no assistance from a helper. 5-Set-up or Clean-up Assistance-helper sets up or cleans up; patient completes activity. [place] assists only prior to or following the activity. 4-Supervision or Touching Assistance-helper provides verbal cues and/or touching/steadying and/or contact guard assistance as patient completes activity. Assistance may be provided throughout the activity or intermittently. 3-Partial/Moderate Assistance-helper does LESS THAN HALF the effort. [place] lifts, holds or supports trunk or limbs, but provides less than half the effort. 2-Substantial/Maximal Assistance-helper does MORE THAN HALF the effort. [place] lifts or holds trunk or limbs and provides more than half the effort. 1-Qrtvanoft-ulkpgv does ALL the effort. Patient does none of the effort to complete the activity. Or, the assistance of 2 or more helpers is required for the patient to complete the activity. If activity was not attempted, code reason: 7-Patient Refused. 9-Not Applicable-not attempted and the patient did not perform the activity before the current illness, exacerbation or injury. 10-Not Attempted due to Environmental Limitations-(lack of equipment, weather restraints, etc.). 88-Not Attempted due to Medical Conditions or Safety Concerns. On/Off Footwear: 2 Other Treatment Pt. in bed. Agrees to work with OT. Pt. transfers supine-sit with max assist. He requires assistance to move right LE to EOB. Then assist to bring torso u pward and scoot to side. This is painful to scrotal area. Pt. is able to sit EOB but unable to stand. He works on deep breathing, bringing shoulders back and maintaining sitting balance. Pt. attempts shoulder flexion exercises, but has very limited shoulder flexion in right shoulder. He completes 10 shoulder flexion exercises in left shoulder to available range. OT elevates bed and pt. is able to complete half stand to scoot self up toward HOB. He requires max assistance to lay down, but needs to scoot to HOB. OT puts bed into reverse position, and pt. is educated on how to bring left LE up to scoot self up. He is able to do this with no difficulty. HOB is elevated and pt. reports that he is comfortable. All needs are met. Education OT Patient Education: Correct positioning, Energy conservation, Exercise program, Modified ADL techniques, Progress toward Goal/Update tx plan, Purpose of tx/functional activities, Reviewed precautions, Rehab process, Transfer techniques Teaching Recipient: Patient Teaching Methods: Demonstration, Discussion Response to Teaching: Verbalize Understanding, Return Demonstration OT Short Term Goals Short Term Goals Time Frame: August 21, 2020 Eatin Oral hygiene: 5 Toileting hygiene: 3 Shower/bathe self: 3 Upper body dressin Lower body dressin Putting on/taking off footwear: 3 OT [facility]ci Goals Blade Groover Goals Time Frame: August 28, 2020 Eating (QC): 6 Oral Hygiene (QC): 6 Toileting Hygiene (QC): 5 Shower/Bathe Self (QC): 4 Upper Body Dressing (QC): 5 Lower Body Dressing (QC): 4 On/Off Footwear (QC): 4 Additional Goals: 1-Demonstrate ADL Tasks, 2-Verbalize Understanding, 3-ImproveStrength/Nichelle 1=Demonstrate adherence to instructed precautions during ADL tasks. 2=Patient will verbalize/demonstrate understanding of assistive devices/modifications for ADL. 3=Patient will improve strength/tolerance for activity to enable patient to perform ADL's. OT Education/Plan Problem List/Assessment Assessment: Decreased Activ Tolerance, Decreased UE Strength, Dependent Transfers, Impaired Bed Mobility, Impaired Funct Balance, Impaired I ADL's, Impaired Self-Care Skills, Restricted Funct UE ROM Discharge Recommendations Plan/Recommendations: Continue POC Treatment Plan/Plan of Care Treatment,Training & Education: Yes Patient would benefit from OT for education, treatment and training to promote independence in ADL's, mobility, safety and/or upper extremity function for ADL's. Plan of Care: ADL Retraining, Functional Mobility, UE Funct Exercise/Act Treatment Duration: August 28, 2020 Frequency: 5 times per week Estimated Hrs Per Day: .25 hour per day Agreement: Yes Rehab Potential: Good Time/GCodes Start Time: 12:05 Stop Time: 12:25 Total Time Billed (hr/min): 20 Billed Treatment Time 1, CALVIN VALLES OT August 16, 2020 13:38
--- NOTE | 2020-08-16 13:42 | Discharge Summary ---
Diagnosis/Chief Complaint Date of Admission August 11, 2020 at 20:26 Date of Discharge Discharge Date: August 16, 2020 Admission Diagnosis NSTEMI Primary Care Stan Mohan MD Discharge Diagnosis (1) NSTEMI (non-ST elevation myocardial infarction) Status: Acute (2) CAD (coronary artery disease) Status: Chronic (3) S/P CABG (coronary artery bypass graft) Status: Chronic (4) Right leg swelling Status: Acute (5) Submandibular lymphadenopathy Status: Acute (6) HTN (hypertension) Status: Chronic (7) HLD (hyperlipidemia) Status: Chronic (8) T2DM (type 2 diabetes mellitus) Status: Acute (9) Hypothyroidism Status: Chronic (10) CKD (chronic kidney disease) Status: Chronic Discharge Summary Discharge Physical Exam Allergies: Coded Allergies: rosuvastatin (Verified Allergy, Unknown, 08/12/20) Vitals & I&Os Vital Signs Date Time Temp Pulse Resp B/P (MAP) Pulse Ox O2 Delivery O2 Flow Rate FiO2 08/18/20 15:11 08/18/20 11:43 36.2 86 20 94 Nasal Cannula 4.00 Hospital Course Labs (last 24 hrs) Patient resulted labs reviewed. Imaging: Reviewed Imaging Report Discharge Home Medications: Active Scripts Active Clopidogrel (Clopidogrel Bisulfate) 75 Mg Tablet 75 Mg PO DAILY Reported Krill Oil 500 Mg Capsule 500 Mg PO BID Multivitamin 1 Each Tablet 1 Each PO DAILY Fiber Gummies (Inulin/Chromium Picolinate) 1 Each Tab.chew 2 Each PO DAILY Aspirin EC (Aspirin) 81 Mg Tablet.dr 81 Mg PO DAILY Potassium Chloride 20 Meq Tab.er.prt 20 Meq PO BID Trazodone HCl 100 Mg Tablet 100 Mg PO HS Timolol Maleate 0.5% (Timolol Maleate) 5 Ml Drops 1 Drop OU DAILY Pantoprazole Sodium 40 Mg Tablet.dr 40 Mg PO DAILY Furosemide 40 Mg Tablet 40 Mg PO DAILY Atorvastatin Calcium 40 Mg Tablet 40 Mg PO DAILY Refresh Tears (Carboxymethylcellulose Sodium) 15 Ml Drops 1 Drop OU DAILY PRN Midodrine HCl 5 Mg Tablet 5 Mg PO DAILY Synthroid (Levothyroxine Sodium) 75 Mcg Tablet 75 Mcg PO DAILY Finasteride 5 Mg Tablet 5 Mg PO DAILY Glipizide 10 Mg Tablet 10 Mg PO BID Instructions to patient/family Please see electronic discharge instructions given to patient. Problem Qualifiers (1) T2DM (type 2 diabetes mellitus): Diabetes mellitus intermediate school teacher insulin use: without intermediate school teacher use Diabetes mellitus complication status: with hypoglycemia Diabetes mellitus complication detail: without coma Qualified Codes: E11.649 - Type 2 diabetes mellitus with hypoglycemia without coma (2) CKD (chronic kidney disease): Chronic kidney disease stage: stage 3 (moderate) Chronic kidney disease stage 3 subtype: stage 3a (GFR 45-59) Qualified Codes: N18.31 - Chronic kidney disease, stage 3a YENNY CASTELAN MD August 16, 2020 13:42
--- NOTE | 2020-08-16 14:43 | Progress Note - Hospitalist ---
Subjective HPI/CC On Admission Date Seen by Provider: August 16, 2020 Time Seen by Provider: 14:36 Atilio Romo is an 79 year old male with PMH CAD s/p CABG, HTN, HLD, T2DM, hypothyroidism, CKD, who presented to [facility] with right leg swelling. His workup revealed an elevated troponin and he was transferred for NSTEMI. He denies any chest pain. He reports shortness of breath. He has been feeling weak. He says that the swelling with his leg has been slowly progressing. He had an ultrasound in the ER that showed no blood clot. He is not sure if they took veins from his leg when he had his bypass last September. Subjective/Events-last exam Pt reports feeling better today. At first requesting to go home and refusing and physical therapy. He eventually agreed to PT so we could make a safe discharge plan. Home oxygen study done which revealed 5lpm need. We discussed that he was mot medically optimized to DC with that much oxygen as a new need and will attempt some diuresis. He is agreeable to plan. Objective Exam Vital Signs Vital Signs Date Time Temp Pulse Resp B/P (MAP) Pulse Ox O2 Delivery O2 Flow Rate FiO2 08/16/20 13:53 95 90 4.00 79 08/16/20 12:00 36.2 16 117/67 (84) Nasal Cannula Capillary Refill : Less Than 3 Seconds General Appearance: No Apparent Distress, Chronically ill, Cachetic Respiratory: Lungs Clear, No Respiratory Distress Cardiovascular: Regular Rate, Rhythm, No Murmur Neurologic/Psychiatric: Alert, Oriented x3 Results/Procedures Lab Laboratory Tests 08/16/20 05:30 Patient resulted labs reviewed. Imaging: Reviewed Imaging Report Assessment/Plan Assessment and Plan Assess & Plan/Chief Complaint Elevated troponin CAD s/p CABG Troponin mildly elevated Cardiology consulted, appreciate assistance Continue ASA and Plavix Echo with normal EF, grade 2 diastolic dysfunction, basal inferoseptal akinesis Stress test negative Will start Lasix Acute respiratory failure with hypoxia Right leg swelling Ultrasound negative for DVT at [facility] Requiring supplemental oxygen PCTA negative for PE CT leg with vastus intermedius abscess vs multifocal fluid collection- surgery evaluated and reports no indication for drainage, signed off Arterial doppler negative as well Consulted general surgery, appreciate assistance Anemia Stable, trend Occult blood ordered and pending Iron low but TIBC also low with high ferritin General surgery consulted, appreciate assistance Discussed with Dr Hrenandez who recommends hiatal hernia repair prior to EGD T2DM with hypoglycemia Hold home meds BS well controlled Stop sliding scale insulin CKD Cr 1.23, unclear baseline Continue to monitor HTN HLD Hypothyroid Continue home meds Submandibular lymphadenopathy Unclear significance CT Neck unremarkable Diagnosis/Problems Diagnosis/Problems (1) NSTEMI (non-ST elevation myocardial infarction) Status: Acute (2) CAD (coronary artery disease) Status: Chronic (3) S/P CABG (coronary artery bypass graft) Status: Chronic (4) Right leg swelling Status: Acute (5) Submandibular lymphadenopathy Status: Acute (6) HTN (hypertension) Status: Chronic (7) HLD (hyperlipidemia) Status: Chronic (8) T2DM (type 2 diabetes mellitus) Status: Acute Qualifiers: Diabetes mellitus watermelon inspector insulin use: without prison use Diabetes mellitus complication status: with hypoglycemia Diabetes mellitus complication detail: without coma Qualified Codes: E11.649 - Type 2 diabetes mellitus with hypoglycemia without coma (9) Hypothyroidism Status: Chronic (10) CKD (chronic kidney disease) Status: Chronic Qualifiers: Chronic kidney disease stage: stage 3 (moderate) Chronic kidney disease stage 3 subtype: stage 3a (GFR 45-59) Qualified Codes: N18.31 - Chronic kidney disease, stage 3a YENNY CASTELAN MD August 16, 2020 14:43
[2020-08-16] MEDS ORDERED: CALCIUM CARBONATE 500 MG (TUMS) TAB.CHEW PO PRN (14:45)
[2020-08-16] MEDS ORDERED: FUROSEMIDE 40 MG/4 ML INJ (LASIX) IVP ONE (14:45)
--- NOTE | 2020-08-16 19:04 | Progress Note - Cardiology ---
Cardiology SOAP Progress Note Subjective: Leg discomfort is better No shortness of breath No cp or palp or syncope No n/v/d Gen malaise, improving Objective: I&O/Vital Signs 08/16/20 08/16/20 08/16/20 08/16/20 08:00 08:00 08:52 12:00 Temp 35.6 36.2 Pulse 98 99 Resp 16 16 B/P (MAP) 98/61 (73) 117/67 (84) Pulse Ox 95 95 96 O2 Delivery Nasal Cannula Nasal Cannula Nasal Cannula Nasal Cannula O2 Flow Rate 4.00 3.00 4.00 4.00 08/16/20 08/16/20 08/16/20 12:45 13:53 16:00 Temp 36.8 Pulse 93 95 89 Resp 16 B/P (MAP) 111/60 (77) Pulse Ox 90 92 79 O2 Delivery Nasal Cannula O2 Flow Rate 4.00 4.00 4.00 08/16/20 00:00 Intake Total 1100 ml Output Total 410 ml Balance 690 ml Constitutional: AAO x 3, well-developed, well-nourished Respiratory: chest is bilaterally symmetric, crackles (coarse breath sounds l eft side, base) Cardiovascular: regular rate-rhythm, S1 and S2 Gastrointestional: soft, audible bowel sounds Genital/Rectal: other (pt has normal circumcised genitalia, but has bruising all over penis and scrotum) Extremities: swelling (bilat LE swelling, pitting and non-pitting); No clubbing, No cyanosis Neurologic/Psychiatric: grossly intact (moves all extremities) Skin: other (excoriations to groin folds bilat) Results/Procedures: Labs Laboratory Tests 08/16/20 05:30: White Blood Count 5.3, Red Blood Count 3.07L, Hemoglobin 8.3L, Hematocrit 26L, Mean Corpuscular Volume 86, Mean Corpuscular Hemoglobin 27, Mean Corpuscular Hemoglobin Concent 31L, Red Cell Distribution Width 15.8H, Platelet Count 256, Mean Platelet Volume 9.6, Sodium Level 139, Potassium Level 4.2, Chloride Level 104, Carbon Dioxide Level 28, Anion Gap 7, Blood Urea Nitrogen 66H, Creatinine 1.23, Estimat Glomerular Filtration Rate 57, BUN/Creatinine Ratio 54, Glucose Level 151H, Calcium Level 9.3, B-Type Natriuretic Peptide 357.7H Laboratory Tests 08/16/20 05:30 A/P: Assessment: Right leg pain of undetermined etiology, suspected to be due to cellulitis (per CT of the right LE on 08-13-20) No clinical or Doppler evidence of limb ischemia. Right lower extremity arterial Doppler was normal on 08-14-20 Mildly elevated troponin: probably type 2 FL due to severe anemia in the setting of known CA - MPI on 08/15/20: No evidence of any significant myocardial ischemia or infarction, normal regional wall motion, LVEF 63%. No evidence of DVT of the RLE per venous Duplex at [facility] H/O CABG x 3 vessel at [facility] in September 2019 Echocardiogram of 08-13-[address] Carreno showed LVEF 55-65%. Grade 2 diastolic dysfunction. Akinesis of basal inferoseptal myocardium. LA mod dilated. Mild MR. 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 Hernandez of surgical services Anemia of undetermined etiology, managed by Med and Surg services Plan: No evidence of acute FL or limb ischemia Limb pain does not appear to be related to CV issues. Management is by the Hospitalist svce Pt has severe anemia. Eval and management is by the Hospitalist svce Monitor lab closely Replace electrolytes as needed LELO DORSEY MD FACP FAC CCDS August 16, 2020 19:04
[2020-08-16] MEDS: ENOXAPARIN 40 MG/0.4 ML (LOVENOX) SYR SC SCH (21:13)
[2020-08-16] MEDS: traZODone 100 MG (DESYREL) TAB PO SCH (21:13)
[2020-08-17 03:17] VITALS: BP 106/69
[2020-08-17 08:00] VITALS: BP 110/61
[2020-08-17] MEDS: ASPIRIN 81 MG CHEW (CHILDREN'S ASA) PO SCH (08:49)
[2020-08-17] MEDS: CLOPIDOGREL 75 MG (PLAVIX) TABLET PO SCH (08:49)
[2020-08-17] MEDS: FUROSEMIDE 40 MG/4 ML INJ (LASIX) IVP SCH (08:49)
--- NOTE | 2020-08-17 09:12 | Progress Note - Cardiology ---
Cardiology SOAP Progress Note Subjective: Sitting up in bed Continues to c/o RLE pain which he feels is not any better than yesterday No c/o CP or palpitations No c/o SOB Objective: I&O/Vital Signs 08/16/20 08/17/20 08/17/20 08/17/20 23:27 01:03 03:17 06:54 Temp 36.9 36.7 Pulse 93 102 90 104 Resp 20 20 B/P (MAP) 107/55 (72) 106/69 (81) Pulse Ox 94 95 O2 Delivery Nasal Cannula Nasal Cannula O2 Flow Rate 4.50 4.50 08/17/20 08/17/20 08:00 08:00 Temp 35.8 Pulse 72 Resp 16 B/P (MAP) 110/61 (77) Pulse Ox 96 O2 Delivery Nasal Cannula Nasal Cannula O2 Flow Rate 4.00 4.50 08/17/20 00:00 Intake Total 980 ml Output Total 1175 ml Balance -195 ml Constitutional: AAO x 3, well-developed, well-nourished Respiratory: chest is bilaterally symmetric, crackles (coarse breath sounds left side, base) Cardiovascular: regular rate-rhythm, S1 and S2 Gastrointestional: soft, audible bowel sounds Genital/Rectal: other (pt has normal circumcised genitalia, but has bruising all over penis and scrotum) Extremities: swelling (bilat LE swelling, pitting and non-pitting); No clubbing, No cyanosis Neurologic/Psychiatric: grossly intact (moves all extremities) Skin: other (excoriations to groin folds bilat) Results/Procedures: Labs Laboratory Tests 08/17/20 00:45: Stool Occult Blood Immunoassay POSITIVEH Laboratory Tests 08/16/20 05:30 A/P: Assessment: Right leg pain of undetermined etiology, suspected to be due to cellulitis (per CT of the right LE on 08-13-20) No clinical or Doppler evidence of limb ischemia. Right lower extremity arterial Doppler was normal on 08-14-20 Mildly elevated troponin: probably type 2 NM due to severe anemia in the setting of known CA - MPI on 08/15/20: No evidence of any significant myocardial ischemia or infarction, normal regional wall motion, LVEF 63%. No evidence of DVT of the RLE per venous Duplex at [facility] H/O CABG x 3 vessel at [facility] in September 2019 Echocardiogram of 08-13-[address] Carreno showed LVEF 55-65%. Grade 2 diastolic dysfunction. Akinesis of basal inferoseptal myocardium. LA mod dilated. Mild MR. 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 Hernandez of surgical services Anemia of undetermined etiology, managed by Med and Surg services Plan: No evidence of acute NM or limb ischemia Limb pain does not appear to be related to CV issues. Management is by the Hospitalist svce Pt has severe anemia. Eval and management is by the Hospitalist svoskar Replace electrolytes as needed Increasing weight gain, increase oxygen demand - acute on chronic diastolic CHF - treat with diuretics Spoke with Dr. Waldrop this morning ALESHA CARROLL August 17, 2020 09:12
[2020-08-17] MEDS ORDERED: FUROSEMIDE 40 MG/4 ML INJ (LASIX) IVP ONE (09:15)
--- NOTE | 2020-08-17 11:31 | Physical Therapy Progress Note ---
Therapy Progress Note Patient declined PT stating, "I just walked to the bathroom and back with Kenna. I don't want to sit in the chair or exercises. I don't mean to be difficult." PT attempted to educate patient on importance of increasing activity to improve strength and mobility, however, patient continued to decline therapy. 1 ref (1125) KIRT SANCHEZ PT August 17, 2020 11:31
[2020-08-17 12:00] VITALS: BP 102/64
--- NOTE | 2020-08-17 13:27 | Progress Note - Hospitalist ---
Subjective HPI/CC On Admission Date Seen by Provider: August 17, 2020 Time Seen by Provider: 13:18 Atilio Romo is an 79 year old male with PMH CAD s/p CABG, HTN, HLD, T2DM, hypothyroidism, CKD, who presented to [facility] with right leg swelling. His workup revealed an elevated troponin and he was transferred for NSTEMI. He denies any chest pain. He reports shortness of breath. He has been feeling weak. He says that the swelling with his leg has been slowly progressing. He had an ultrasound in the ER that showed no blood clot. He is not sure if they took veins from his leg when he had his bypass last September. Subjective/Events-last exam Pt reports breathing is better today. He today complained for the first time of tongue swelling. He states it has been intermittent for well over the past month and resolves on it's own and he is not bothered by this. Called and spoke with his as well to discuss discharge planning. She asked very reasonable questions regarding his functional status and her ability to care for him, whether she would need DME or not. Informed her that he has been refusing PT most days but he is ambulatory to the bathroom. RN will assess him with toilet riser and call back with update on his status there. She also asked about his tongue swelling. Offered steroids but she declined. Objective Exam Vital Signs Vital Signs Date Time Temp Pulse Resp B/P (MAP) Pulse Ox O2 Delivery O2 Flow Rate FiO2 08/17/20 08:00 35.8 72 16 110/61 (77) 96 Nasal Cannula 4.50 Capillary Refill : Less Than 3 Seconds General Appearance: No Apparent Distress, Chronically ill, Cachetic Respiratory: Lungs Clear, No Respiratory Distress Cardiovascular: Regular Rate, Rhythm, No Murmur Gastrointestinal: Normal Bowel Sounds, Soft Neurologic/Psychiatric: Alert, Oriented x3 Results/Procedures Lab Patient resulted labs reviewed. Imaging: Reviewed Imaging Report Assessment/Plan Assessment and Plan Assess & Plan/Chief Complaint Elevated troponin CAD s/p CABG Decompensated dCHF Troponin mildly elevated Cardiology consulted, appreciate assistance Continue ASA and Plavix Echo with normal EF, grade 2 diastolic dysfunction, basal inferoseptal akinesis Stress test negative Continue lasix Discussed with nurse regarding oxygen weaning and she will work on weaning as able Acute respiratory failure with hypoxia Right leg swelling Ultrasound negative for DVT at [facility] Requiring supplemental oxygen PCTA negative for PE CT leg with vastus intermedius abscess vs multifocal fluid collection- surgery evaluated and reports no indication for drainage, signed off Arterial doppler negative as well Consulted general surgery, appreciate assistance Anemia Stable, trend Occult blood ordered and pending Iron low but TIBC also low with high ferritin General surgery consulted, appreciate assistance Discussed with Dr Hernandez who recommends hiatal hernia repair prior to EGD T2DM with hypoglycemia Hold home meds BS well controlled Stop sliding scale insulin CKD Cr 1.23, unclear baseline Continue to monitor HTN HLD Hypothyroid Continue home meds Submandibular lymphadenopathy Unclear significance CT Neck unremarkable Debility PT/OT ordered, patient refusing Agreeable to home with home health expresses concern about her ability to care for him RN to follow up with her about functional status, social media assistant consulted Diagnosis/Problems Diagnosis/Problems (1) NSTEMI (non-ST elevation myocardial infarction) Status: Acute (2) CAD (coronary artery disease) Status: Chronic (3) S/P CABG (coronary artery bypass graft) Status: Chronic (4) Right leg swelling Status: Acute (5) Submandibular lymphadenopathy Status: Acute (6) HTN (hypertension) Status: Chronic (7) HLD (hyperlipidemia) Status: Chronic (8) T2DM (type 2 diabetes mellitus) Status: Acute Qualifiers: Diabetes mellitus jail insulin use: without jail use Diabetes mellitus complication status: with hypoglycemia Diabetes mellitus complication detail: without coma Qualified Codes: E11.649 - Type 2 diabetes mellitus with hypoglycemia without coma (9) Hypothyroidism Status: Chronic (10) CKD (chronic kidney disease) Status: Chronic Qualifiers: Chronic kidney disease stage: stage 3 (moderate) Chronic kidney disease stage 3 subtype: stage 3a (GFR 45-59) Qualified Codes: N18.31 - Chronic kidney disease, stage 3a YENNY CASTELAN MD August 17, 2020 13:27
--- NOTE | 2020-08-17 14:19 | Physical Therapy Daily Note ---
PT Daily Note-Current Subjective Patient agrees to exercises. Adamantly declined OOB activity. Mental Status Patient Orientation: Normal For Age Transfers SCALE: Activities may be completed with or without assistive devices. 5-Nbjdecqhjx-qjdbmrs completes the activity by him/herself with no assistance from a helper. 5-Set-up or Clean-up Assistance-helper sets up or cleans up; patient completes activity. [place] assists only prior to or following the activity. 4-Supervision or Touching Assistance-helper provides verbal cues and/or touching/steadying and/or contact guard assistance as patient completes activity. Assistance may be provided throughout the activity or intermittently. 3-Partial/Moderate Assistance-helper does LESS THAN HALF the effort. [place] lifts, holds or supports trunk or limbs, but provides less than half the effort. 2-Substantial/Maximal Assistance-helper does MORE THAN HALF the effort. [place] lifts or holds trunk or limbs and provides more than half the effort. 9-Szyehhxdz-rjhtwx does ALL the effort. Patient does none of the effort to complete the activity. Or, the assistance of 2 or more helpers is required for the patient to complete the activity. If activity was not attempted, code reason: 7-Patient Refused. 9-Not Applicable-not attempted and the patient did not perform the activity before the current illness, exacerbation or injury. 10-Not Attempted due to Environmental Limitations-(lack of equipment, weather restraints, etc.). 88-Not Attempted due to Medical Conditions or Safety Concerns. Weight Bearing Weight Bearing/Tolerated Weight Bearing/Tolerated Exercises Supine Ex: Ankle pumps, Quad Set, Glut sets, Heel Slides, Straight leg raise, Hip abd/add Supine Reps: 10 (AAROM bilaterally) Assessment Current Status: Poor Progress Patient tolerated minimal activity and ceased treatment. PT will continue to encourage patient to increase his activity level. PT Short Term Goals Short Term Goals Time Frame: August 19, 2020 Roll Left & Right: 5 Sit to lyin Lying to sitting on side of be: 5 Sit to stand: 5 Chair/cse-tr-hvskx transfer: 5 Toilet transfer: 5 Car transfer: 5 Walk 10 feet: 5 Walk 50 feet with two turns: 5 PT Intermediate Goals Intermediate Goals PT Cross Cut Sawyer Goals Time Frame: August 26, 2020 Roll Left & Right (QC): 6 Sit to Lying (QC): 6 Lying-Sitting on Side/Bed(QC): 6 Sit to Stand (QC): 6 Chair/Wvg-bu-Wevlb Xfer(QC): 6 Toilet Transfer (QC): 6 Car Transfer (QC): 6 Does the Patient Walk: Yes Walk 10 feet (QC): 6 Walk 50ft with 2 Turns (QC): 6 Walk 150 ft (QC): 6 PT Plan Treatment/Plan Treatment Plan: Continue Plan of Care Treatment Plan: Bed Mobility, Functional Activity Nichelle, Functional Strength, Gait, Therapeutic Exercise, Transfers Treatment Duration: August 26, 2020 Frequency: 11 times per week Estimated Hrs Per Day: .5 hour per day Time/GCodes Time In: 1256 Time Out: 1304 Total Billed Treatment Time: 8 Total Billed Treatment 1 visit EX 8 min KIRT SANCHEZ PT August 17, 2020 14:19
--- NOTE | 2020-08-17 15:52 | Occ Therapy Progress Note ---
Therapy Progress Note Pt. in bed. Declines treatment. Pt. reports that he needs to use the bathroom. OT offers to assist him to commode. Pt. states he needs to use the urinal, that he has it, and that he needs no assist. OT leaves pt. in bed with all needs met. Pt. declines any other treatment at this time. 1, visit 1432 CALVIN DENNEY OT August 17, 2020 15:52
[2020-08-17 16:00] VITALS: BP 103/53
[2020-08-17 19:30] VITALS: BP 117/58
[2020-08-17] MEDS: ENOXAPARIN 40 MG/0.4 ML (LOVENOX) SYR SC SCH (21:32)
[2020-08-17] MEDS: traZODone 100 MG (DESYREL) TAB PO SCH (21:32)
[2020-08-18 00:25] VITALS: BP 97/54
[2020-08-18 03:57] VITALS: BP 105/63
[2020-08-18 05:31] LABS: HEMATOCRIT 28 % (40-54); HEMOGLOBIN 8.5 g/dL (13.3-17.7); MEAN CORPUSCULAR HEMOGLOBIN 27 pg (25-34); MEAN CORPUSCULAR HGB CONC 31 g/dL (32-36); MEAN CORPUSCULAR VOLUME 88 fL (80-99); MEAN PLATELET VOLUME 9.8 fL (9.0-12.2); PLATELET COUNT 269 10^3/uL (130-400); WHITE BLOOD COUNT 6.5 10^3/uL (4.3-11.0)
[2020-08-18 05:50] LABS: POTASSIUM 4.2 MMOL/L (3.6-5.0)
[2020-08-18 05:51] LABS: CALCIUM 9.4 MG/DL (8.5-10.1)
[2020-08-18 05:56] LABS: CREATININE SERUM 1.24 MG/DL (0.60-1.30)
[2020-08-18 07:47] VITALS: BP 111/63
[2020-08-18] MEDS: ASPIRIN 81 MG CHEW (CHILDREN'S ASA) PO SCH (08:48)
[2020-08-18] MEDS: FUROSEMIDE 40 MG/4 ML INJ (LASIX) IVP SCH (08:48)
[2020-08-18] MEDS: CLOPIDOGREL 75 MG (PLAVIX) TABLET PO SCH (08:48)
--- NOTE | 2020-08-18 10:16 | Physical Therapy Daily Note ---
PT Daily Note-Current Subjective Patient states, "If you all would let me go home I have everything I need. My commode is higher and my set up is better than here." Patient declined OOB activity but agrees to exercises. Mental Status Patient Orientation: Normal For Age Attachments: Oxygen Transfers SCALE: Activities may be completed with or without assistive devices. 5-Dnasideczk-gwlnbgi completes the activity by him/herself with no assistance from a helper. 5-Set-up or Clean-up Assistance-helper sets up or cleans up; patient completes activity. [place] assists only prior to or following the activity. 4-Supervision or Touching Assistance-helper provides verbal cues and/or touching/steadying and/or contact guard assistance as patient completes activity. Assistance may be provided throughout the activity or intermittently. 3-Partial/Moderate Assistance-helper does LESS THAN HALF the effort. [place] lifts, holds or supports trunk or limbs, but provides less than half the effort. 2-Substantial/Maximal Assistance-helper does MORE THAN HALF the effort. [place] lifts or holds trunk or limbs and provides more than half the effort. 0-Hwvpbvsgq-gnxefc does ALL the effort. Patient does none of the effort to complete the activity. Or, the assistance of 2 or more helpers is required for the patient to complete the activity. If activity was not attempted, code reason: 7-Patient Refused. 9-Not Applicable-not attempted and the patient did not perform the activity before the current illness, exacerbation or injury. 10-Not Attempted due to Environmental Limitations-(lack of equipment, weather restraints, etc.). 88-Not Attempted due to Medical Conditions or Safety Concerns. Roll Left & Right (QC): 5 (to reposition up in bed) Weight Bearing Weight Bearing/Tolerated Weight Bearing/Tolerated Exercises Supine Ex: Ankle pumps, Quad Set, Glut sets, Heel Slides, Straight leg raise, Hip abd/add Supine Reps: 10 (x 2 sets AAROM bilaterally) Assessment Patient tolerated treatment and was incontinent BM. Nursing notified. PT to continue to encourage OOB activity to improve strength and mobility. PT Short Term Goals Short Term Goals Time Frame: August 19, 2020 Roll Left & Right: 5 Sit to lyin Lying to sitting on side of be: 5 Sit to stand: 5 Chair/gof-np-kqyky transfer: 5 Toilet transfer: 5 Car transfer: 5 Walk 10 feet: 5 Walk 50 feet with two turns: 5 PT Group Home Goals Harvesting Contractor Goals PT Harvesting Contractor Goals Time Frame: August 26, 2020 Roll Left & Right (QC): 6 Sit to Lying (QC): 6 Lying-Sitting on Side/Bed(QC): 6 Sit to Stand (QC): 6 Chair/Mow-xe-Qbcfn Xfer(QC): 6 Toilet Transfer (QC): 6 Car Transfer (QC): 6 Does the Patient Walk: Yes Walk 10 feet (QC): 6 Walk 50ft with 2 Turns (QC): 6 Walk 150 ft (QC): 6 PT Plan Treatment/Plan Treatment Plan: Continue Plan of Care Treatment Plan: Bed Mobility, Functional Activity Nichelle, Functional Strength, Gait, Therapeutic Exercise, Transfers Treatment Duration: August 26, 2020 Frequency: 11 times per week Estimated Hrs Per Day: .5 hour per day Time/GCodes Time In: 923 Time Out: 933 Total Billed Treatment Time: 10 Total Billed Treatment 1 visit EX 10 min KIRT SANCHEZ PT August 18, 2020 10:16
--- NOTE | 2020-08-18 11:18 | D/C HH Face to Face Order ---
D/C Face to Face Orders Instructions for Patient Via [facility], Patient Instructions/FollowUp: Please continue to take your medications as written. Please follow up with your primary care doctor to follow up this hospital stay. Physician to follow Patient: Dr Mohan Discharge Diet for Home: Cardiac Diet Patient Data-Allergies,Ht & Wt Patient Allergies: Coded Allergies: rosuvastatin (Verified Allergy, Unknown, 08/12/20) Home Health Need/Face to Face Date of Face to Face: August 18, 2020 Clinical Findings: Generalized weakness and fatigue I have seen Pt huty-ik-pizn: Yes Discharged To: Home Diagnosis/Conditions: CAD s/p CABG, CHF, hiatal hernia Patient is Homebound due to: [place] fall risk due to instabilty, Pain w/ambulation, Shortness of breath/distress Homebound Status Due to the above stated illness, injury or surgical procedure (medical condition or diagnosis) and associated clinical findings, the patient is homebound because of his/her inability to leave home except with aid of a supportive device and/or person AND leaving the home requires a considerable and taxing effort or is medically contraindicated. Pt req the following assistanc: Aid of another person, Walker Home Health Nursing Orders Home Health Services Order: Nursing Services, Academic Advising Director-Evaluate & Treat, Physical Therapy-Evaluate & Treat Therapy Orders Therapy Orders: OT (must have SN or PT order), Physical Therapy Therapy Specific Orders: Eval assistive deivces, Teach enviro modifications/safety, Gait training, Increase strength/endurance Certify Stmt I certify that this patient is under my care and that I, a nurse practitioner or a physician; a special events assistant working with me, had a face to face encounter that - meets the physician face to face encounter requirements with this patient as dated. YENNY CASTELAN MD August 18, 2020 11:18
--- NOTE | 2020-08-18 11:28 | Discharge Summary ---
Diagnosis/Chief Complaint Date of Admission August 11, 2020 at 20:26 Date of Discharge Discharge Date: August 16, 2020 Admission Diagnosis NSTEMI Primary Care Stan Mohan MD Discharge Diagnosis (1) NSTEMI (non-ST elevation myocardial infarction) Status: Acute (2) CAD (coronary artery disease) Status: Chronic (3) S/P CABG (coronary artery bypass graft) Status: Chronic (4) Right leg swelling Status: Acute (5) Submandibular lymphadenopathy Status: Acute (6) HTN (hypertension) Status: Chronic (7) HLD (hyperlipidemia) Status: Chronic (8) T2DM (type 2 diabetes mellitus) Status: Acute (9) Hypothyroidism Status: Chronic (10) CKD (chronic kidney disease) Status: Chronic Discharge Summary Procedures/Consulations Dr Greene- Cardiology Dr Willis- Wound care Dr Hernandez- Surgery Discharge Physical Exam Allergies: Coded Allergies: rosuvastatin (Verified Allergy, Unknown, 08/12/20) Vitals & I&Os Vital Signs Date Time Temp Pulse Resp B/P (MAP) Pulse Ox O2 Delivery O2 Flow Rate FiO2 08/18/20 15:11 08/18/20 11:43 36.2 86 20 94 Nasal Cannula 4.00 General Appearance: No Apparent Distress, Chronically ill, Cachetic Cardiovascular: Regular Rate, Rhythm, No Murmur Gastrointestinal: Normal Bowel Sounds, Soft Neurologic/Psychiatric: Alert, Oriented x3 Hospital Course Mr Romo was admitted for NSTEMI. He has a hsitory of a recent CABG in September of 2019 and underwent stress testing while here which was negative. He was also found to be hypoxic and was treated for dCHF exacerabation with Lasix. He responded to this and was titrated down to 4lpm. He did complain of leg pain and swelling of his right leg where he had his graft and all work up for this was negative (CT leg, venous and arterial dopplers). I had multiple roni discussions with him regarding his current status and need for further work up of his hypoxia, anemia, and weight loss (40-50lbs since his CABG). He reports all of this is due to his hiatal hernia and he wants to DC home so he can continue work up for it's surgical repair and he is not interested in pursuing further care here. He also mostly refused PT while he was here and when he did participate he was quite deconditioned. I discussed this with him and his and my medical recommendation for SNF placement. was in agreement but patient adamantly refused. He states his set up at home is better and he will be more functional there. agrees to try to take him home but is aware it may not go well. I called and updated his PCP Dr Mohan regarding this who will follow him closely in the clinic. Labs (last 24 hrs) Patient resulted labs reviewed. Pending Labs Imaging: Reviewed Imaging Report Discussion & Recommendations Discharge Planning: >30 minutes discharge planning Discharge Home Medications: Active Scripts Active Clopidogrel (Clopidogrel Bisulfate) 75 Mg Tablet 75 Mg PO DAILY Reported Krill Oil 500 Mg Capsule 500 Mg PO BID Multivitamin 1 Each Tablet 1 Each PO DAILY Fiber Gummies (Inulin/Chromium Picolinate) 1 Each Tab.chew 2 Each PO DAILY Aspirin EC (Aspirin) 81 Mg Tablet.dr 81 Mg PO DAILY Potassium Chloride 20 Meq Tab.er.prt 20 Meq PO BID Trazodone HCl 100 Mg Tablet 100 Mg PO HS Timolol Maleate 0.5% (Timolol Maleate) 5 Ml Drops 1 Drop OU DAILY Pantoprazole Sodium 40 Mg Tablet.dr 40 Mg PO DAILY Furosemide 40 Mg Tablet 40 Mg PO DAILY Atorvastatin Calcium 40 Mg Tablet 40 Mg PO DAILY Refresh Tears (Carboxymethylcellulose Sodium) 15 Ml Drops 1 Drop OU DAILY PRN Midodrine HCl 5 Mg Tablet 5 Mg PO DAILY Synthroid (Levothyroxine Sodium) 75 Mcg Tablet 75 Mcg PO DAILY Finasteride 5 Mg Tablet 5 Mg PO DAILY Glipizide 10 Mg Tablet 10 Mg PO BID Instructions to patient/family Please see electronic discharge instructions given to patient. Copy Copies To 1: Dr Stan Mohan Problem Qualifiers (1) T2DM (type 2 diabetes mellitus): Diabetes mellitus senior care insulin use: without termite inspector use Diabetes mellitus complication status: with hypoglycemia Diabetes mellitus complication detail: without coma Qualified Codes: E11.649 - Type 2 diabetes mellitus with hypoglycemia without coma (2) CKD (chronic kidney disease): Chronic kidney disease stage: stage 3 (moderate) Chronic kidney disease stage 3 subtype: stage 3a (GFR 45-59) Qualified Codes: N18.31 - Chronic kidney disease, stage 3a YENNY CASTELAN MD August 18, 2020 11:28
[2020-08-18 11:43] VITALS: BP 107/62
--- NOTE | 2020-08-18 12:34 | Occupational Ther Daily Note ---
OT Current Status-Daily Note Subjective Pt AxO, agrees to tx. Pt denies pain, states desire to go home today. This motivates pt to complete more tasks with encouragement. Mental Status/Objective Patient Orientation: Person, Place, Situation Attachments: Oxygen ADL-Treatment Therapy Code Descriptions/Definitions Functional [place] Measure: 0=Not Assessed/NA 4=Minimal Assistance 1=Total Assistance 5=Supervision or Setup 2=Maximal Assistance 6=Modified [place] 3=Moderate Assistance 7=Complete IndependenceSCALE: Activities may be completed with or without assistive devices. 3-Izeirbilaa-etlihzf completes the activity by him/herself with no assistance from a helper. 5-Set-up or Clean-up Assistance-helper sets up or cleans up; patient completes activity. [place] assists only prior to or following the activity. 4-Supervision or Touching Assistance-helper provides verbal cues and/or touching/steadying and/or contact guard assistance as patient completes activity. Assistance may be provided throughout the activity or intermittently. 3-Partial/Moderate Assistance-helper does LESS THAN HALF the effort. [place] lifts, holds or supports trunk or limbs, but provides less than half the effort. 2-Substantial/Maximal Assistance-helper does MORE THAN HALF the effort. [place] lifts or holds trunk or limbs and provides more than half the effort. 7-Wmpshybqs-zztcrd does ALL the effort. Patient does none of the effort to complete the activity. Or, the assistance of 2 or more helpers is required for the patient to complete the activity. If activity was not attempted, code reason: 7-Patient Refused. 9-Not Applicable-not attempted and the patient did not perform the activity before the current illness, exacerbation or injury. 10-Not Attempted due to Environmental Limitations-(lack of equipment, weather restraints, etc.). 88-Not Attempted due to Medical Conditions or Safety Concerns. Eating (QC): 6 Oral Hygiene (QC): 6 (IND at bedside.) Shower/Bathe Self (QC): 7 Toileting Hygiene (QC): 3 (mod A bottom care.) Other Treatment Pt completes bed mob with mod A. Sits EOB during oral care with increased fatigue. Pt stands 2x with mod A from raised bed each time. Poor endurance. Requires rest. Pt's bottom cleansed in stance with mod A. Returns to supine with mod A. All needs met, call light in reach, pillow placed under pt's R side for bottom care. Bed alarm on Education OT Patient Education: Correct positioning, Modified ADL techniques, Progress toward Goal/Update tx plan, Safety issues, Transfer techniques Teaching Recipient: Patient Teaching Methods: Demonstration, Discussion Response to Teaching: Verbalize Understanding, Return Demonstration OT Short Term Goals Short Term Goals Time Frame: August 21, 2020 Eatin Oral hygiene: 5 Toileting hygiene: 3 Shower/bathe self: 3 Upper body dressin Lower body dressin Putting on/taking off footwear: 3 OT Half-Way Goals Half-Way Goals Time Frame: August 28, 2020 Eating (QC): 6 Oral Hygiene (QC): 6 Toileting Hygiene (QC): 5 Shower/Bathe Self (QC): 4 Upper Body Dressing (QC): 5 Lower Body Dressing (QC): 4 On/Off Footwear (QC): 4 Additional Goals: 1-Demonstrate ADL Tasks, 2-Verbalize Understanding, 3- ImproveStrength/Nichelle 1=Demonstrate adherence to instructed precautions during ADL tasks. 2=Patient will verbalize/demonstrate understanding of assistive devices/modifications for ADL. 3=Patient will improve strength/tolerance for activity to enable patient to perform ADL's. OT Education/Plan Problem List/Assessment Assessment: Decreased Activ Tolerance, Decreased UE Strength, Dependent Transfers, Edema (20 sec pitting R; 10 sec pitting L), Impaired Bed Mobility, Impaired Funct Balance, Impaired I ADL's, Impaired Self-Care Skills, Restricted Funct UE ROM Discharge Recommendations Plan/Recommendations: Continue POC Therapy Discharge Recommendati: Assisted Living, Bath Aide, Post Acute OT Treatment Plan/Plan of Care Treatment,Training & Education: Yes Patient would benefit from OT for education, treatment and training to promote independence in ADL's, mobility, safety and/or upper extremity function for ADL's. Plan of Care: ADL Retraining, Functional Mobility, UE Funct Exercise/Act Treatment Duration: August 28, 2020 Frequency: 5 times per week Estimated Hrs Per Day: .25 hour per day Agreement: Yes Rehab Potential: Good Time/GCodes Start Time: 10:09 Stop Time: 10:30 Total Time Billed (hr/min): 21 Billed Treatment Time 1, ADL (21) REYNA RAMEY OTR August 18, 2020 12:34
--- NOTE | 2020-08-18 22:53 | Cardiology Progress Note ---
Cardiology SOAP Progress Note Subjective: No chest pain. Objective: I&O/Vital Signs Constitutional: AAO x 3, well-developed, well-nourished Respiratory: chest is bilaterally symmetric, crackles (coarse breath sounds left side, base) Cardiovascular: regular rate-rhythm, S1 and S2 Gastrointestional: soft, audible bowel sounds Genital/Rectal: other (pt has normal circumcised genitalia, but has bruising all over penis and scrotum) Extremities: swelling (bilat LE swelling, pitting and non-pitting); No clubbing, No cyanosis Neurologic/Psychiatric: grossly intact (moves all extremities) Skin: other (excoriations to groin folds bilat) Results/Procedures: Labs A/P: Assessment/Dx: Right leg pain and swelling, CAD, CABG, Anemia, CKD Plan: Right leg pain of undetermined etiology, suspected to be due to cellulitis (per CT of the right LE on 08-13-20) No clinical or Doppler evidence of limb ischemia. Right lower extremity arterial Doppler was normal on 08-14-20 Mildly elevated troponin: probably type 2 WI due to severe anemia - MPI on 08/15/20: No evidence of any significant myocardial ischemia or infarction, normal regional wall motion, LVEF 63%. No evidence of DVT of the RLE per venous Duplex at [facility] H/O CABG x 3 vessel at [facility] in September 2019 Echocardiogram of 08-13-20 showed LVEF 55-65%. Grade 2 diastolic dysfunction. Akinesis of basal inferoseptal myocardium. LA mod dilated. Mild MR. 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 Hernandez of surgical services Anemia of undetermined etiology, managed by Med and Surg services Thank you for your consultation. Please call me if you have any questions. Leo Carreno MD, FACP, FACC, FSCAI, FHRS, CCDS Interventional Cardiology Cardiac Electrophysiology Vascular Medicine and Endovascular Interventions Hay CARRENO MD August 18, 2020 22:53
== END 2020-08-18 15:10 | disposition home health service (06) | DRG 280 ==
LOC: ICU 20:26 → 4TH 08-13 15:48
PROVIDERS: ADMIT Internal Medicine; ATTEND Internal Medicine
DX: I25.10 Atherosclerotic heart disease of native coronary artery without angina pectoris (principal); I50.33 Acute on chronic diastolic (congestive) heart failure; I21.A1 Myocardial infarction type 2; J96.01 Acute respiratory failure with hypoxia; I13.0 Hypertensive heart and chronic kidney disease with heart failure and stage 1 through stage 4 chronic kidney disease, or unspecified chronic kidney disease; J90 Pleural effusion, not elsewhere classified; L03.115 Cellulitis of right lower limb; Z95.1 Presence of aortocoronary bypass graft; E78.5 Hyperlipidemia, unspecified; E11.22 Type 2 diabetes mellitus with diabetic chronic kidney disease; E03.9 Hypothyroidism, unspecified; N18.31 Chronic kidney disease, stage 3a; D64.9 Anemia, unspecified; R59.1 Generalized enlarged lymph nodes; E11.649 Type 2 diabetes mellitus with hypoglycemia without coma; L89.152 Pressure ulcer of sacral region, stage 2; K44.9 Diaphragmatic hernia without obstruction or gangrene; F17.220 Nicotine dependence, chewing tobacco, uncomplicated; J44.9 Chronic obstructive pulmonary disease, unspecified; N40.0 Benign prostatic hyperplasia without lower urinary tract symptoms; K57.90 Diverticulosis of intestine, part unspecified, without perforation or abscess without bleeding; M19.90 Unspecified osteoarthritis, unspecified site; G89.29 Other chronic pain; M54.9 Dorsalgia, unspecified; R53.81 Other malaise
CPT/HCPCS: 36415; 70490; 71275; 73700; 78452; 80048; 80076; 82274; 82728; 82947; 83540; 83550; 83735; 83880; 84484; 85025; 85027; 85379; 93005; 93017; 93306; 93926; 94760; 94761